=== PATIENT | male | born 1950 | race Caucasian/White ===

== ENCOUNTER 2019-08-07 11:30 | Emergency (ER) | payer MEDICARE, SELFPAY ==
[2019-08-07 11:44] VITALS: BP 170/91; PULSE 98; RESP 16; TEMP 37.2; O2SAT 98
--- NOTE | 2019-08-07 12:05 | ED.EAR ---
HPI - Ear Problem General Chief complaint: Unspecified Stated complaint: trigeminal Time Seen by Provider: 08/07/19 11:54 Source: patient and RN notes reviewed Mode of arrival: ambulatory Limitations: no limitations History of Present Illness HPI Narrative: Patient presents today complaining of trigeminal neuralgia pain to the left ear and neck. States his pain started approximately 2 weeks ago, but has worsened over the last 2 days. He describes the pain as very sharp and piercing inside of his ear. He reports he has severe pain episodes usually 3 times per day, that can last for hours. He has been taking Aleve and using ice on his ear. Currently rates his pain 10/10. History of trigeminal neuralgia many years ago and was on Tegretol. Also states that he has had some pressure buildup in his ear and has tried to equalize without success. MD Complaint: ear pain Related Data Home Medications Medication Instructions Recorded Confirmed metformin 500 mg PO DAILY 01/22/19 08/07/19 glipizide 5 mg PO DAILY 08/07/19 08/07/19 mecobalamin (vitamin B12) [B12 1,000 mcg PO DAILY 08/07/19 08/07/19 Active] Allergies Allergy/AdvReac Type Severity Reaction Status Date / Time No Known Allergies Allergy Verified 08/07/19 11:42 Review of Systems Review of Systems: Narrative: CONSTITUTIONAL: Denies body aches, fever, chills, or sweats. EYES: Denies visual changes, redness, or discharge. ENT: Denies rhinorrhea, congestion, sore throat. +Left ear pain radiating to the left neck CARDIOVASCULAR: Denies chest pain, palpitations, or edema. RESPIRATORY: Denies cough or dyspnea. GASTROINTESTINAL: Denies abdominal pain, nausea, vomiting, or diarrhea. GENITOURINARY: Denies dysuria or hematuria. SKIN: Denies rash, itching, or wounds. MUSCULOSKELETAL: Denies back pain, joint pain, or myalgia. NEUROLOGIC: Denies headache, numbness, tingling, or weakness. PSYCH: Denies depression or anxiety. [facility] Past Medical History Medical History (Updated 08/07/19 @ 12:11 by Alana Muniz, DANIELLA, BC) Diabetes History of trigeminal neuralgia Hypertension Family History Family History Other Cerebrovascular accident Diabetes mellitus Social History Social History Smoking status: Never smoker Second hand tobacco smoke exposure: No Alcohol intake: never Comments At time of signature, I have reviewed and agree with nursing past medical, surgical, social and family history unless otherwise noted. Please see nursing chart for further information. There is no relevant family history pertinent to the presenting complaint Exam Narrative: Exam Narrative: GENERAL: Well-appearing, well-nourished, and in no acute distress. HEAD: Normocephalic, atraumatic. EYES: EOMI. No redness or drainage. Conjunctivae normal. ENT: Mucous membranes pink and moist. Patient has slight movement tenderness of the left external ear.Tenderness extends overlying the left eustachian tube. No swelling of the external ear or neck.Left TM is erythematous and dull. No visualized rupture. Patient has no tenderness to the face. NECK: Normal AROM. Supple. Left anterior cervical chain lymphadenopathy. CHEST: No respiratory distress. EXTREMITIES: Normal range of motion. No edema. SKIN: Warm, dry, no rash. Capillary refill normal. Normal skin turgor. NEURO: No focal deficits. Alert and oriented x3. Gait steady. PSYCH: Normal affect. No signs of depression or anxiety. Course Vital Signs Vital signs: Vital Signs Temperature 98.9 F 08/07/19 11:44 Pulse Rate 98 08/07/19 11:44 Respiratory Rate 16 08/07/19 11:44 Blood Pressure 170/91 H 08/07/19 11:44 Pulse Oximetry 98 08/07/19 11:44 Temperature 98.9 F 08/07/19 11:44 Pulse Rate 98 08/07/19 11:44 Respiratory Rate 16 08/07/19 11:44 Blood Pressure 170/91 H 08/07/19 11:44
== END 2019-08-07 12:12 | disposition home or self-care (01) ==
PROVIDERS: Emergency Provider Nurse Practitioner; PCP Family Medicine
DX: H66.92 Otitis media, unspecified, left ear (principal); H69.82 Other specified disorders of Eustachian tube, left ear; I10 Essential (primary) hypertension; E11.9 Type 2 diabetes mellitus without complications; E78.00 Pure hypercholesterolemia, unspecified; Z87.442 Personal history of urinary calculi; M19.90 Unspecified osteoarthritis, unspecified site; Z79.84 Long term (current) use of oral hypoglycemic drugs
CPT/HCPCS: 99213; G0463

== ENCOUNTER 2019-11-05 10:17 | Emergency (ER) | payer MEDICARE, SELFPAY ==
--- NOTE | 2019-11-05 10:20 | ED.GENADULT ---
HPI - General Adult General Chief complaint: Ear Stated complaint: EARACHE Time Seen by Provider: 11/05/19 10:20 Source: patient Mode of arrival: ambulatory Limitations: no limitations History of Present Illness HPI narrative: 69-year-old male patient presents to the [facility] with complaints of right ear pain. Patient states this is been going on for about a week. Patient states that it was the left ear about a week ago and now is the right ear. Patient states he is tried to get the wax out with some [id number] wax removal without success. Patient states he has had some drainage to the back of the throat along with a little bit of stuffy nose. Denies any fevers, body aches or chills. Denies any coughing, chest pain, shortness of breath. Denies any abdominal pain, nausea, vomiting or diarrhea. Related Data Home Medications Medication Instructions Recorded Confirmed glipizide 5 mg PO DAILY 08/07/19 11/05/19 mecobalamin (vitamin B12) [B12 1,000 mcg PO DAILY 08/07/19 11/05/19 Active] Allergies Allergy/AdvReac Type Severity Reaction Status Date / Time No Known Allergies Allergy Verified 11/05/19 10:30 Review of Systems Review of Systems: Narrative: CONSTITUTIONAL: Denies fever, chills, or sweats. EYES: Denies visual changes, redness, or discharge. ENT: Positive rhinorrhea, congestion, denies sore throat, positive right-sided otalgia. CARDIOVASCULAR: Denies chest pain, palpitations, or edema. RESPIRATORY: Denies cough or dyspnea. GASTROINTESTINAL: Denies abdominal pain, nausea, vomiting, or diarrhea. GENITOURINARY: Denies dysuria or hematuria. SKIN: Denies rash or itching. MUSCULOSKELETAL: Denies back pain, joint pain, or myalgia. NEUROLOGIC: Denies headache, numbness, or weakness. PSYCHIATRIC: Denies anxiety or depression. [facility] Past Medical History Medical History Diabetes History of trigeminal neuralgia Hypertension Family History Family History Other Cerebrovascular accident Diabetes mellitus Social History Social History Smoking status: Never smoker Second hand tobacco smoke exposure: No Alcohol intake: never Comments At the time of my signature I agree with nursing past medical history, surgical, social, and family history. There is no relevant family history pertinent to the presenting complaint. Exam Narrative: Exam Narrative: GENERAL: Well-appearing, well-nourished, and in no acute distress. HEAD: Normocephalic, atraumatic. EYES: PERRLA and EOMI. ENT: Nares clear, no rhinorrhea or epistaxis. Mucous membranes moist. Unable to assess the TMs on bilateral side due to cerumen impaction. Posterior pharynx with no erythema, tonsil enlargement, exudates or lesions present. NECK: Supple. No lymphadenopathy CHEST: Clear to auscultation. No respiratory distress. HEART: Regular rate and rhythm. No murmur heard. Normal peripheral pulses. ABDOMEN: Soft, nontender, nondistended, normal active bowel sounds. EXTREMITIES: Normal range of motion. No edema. SKIN: Warm, dry, no rash. NEURO: No focal deficits. Alert and oriented x3. Course Reevaluation(s) Reevaluation #1: Discussed with patient that the earwax was removed from the left ear however there is a little earwax that remains to the right canal. Discussed with him that his canal is a little irritated and I am also possibly concerned about an inner ear infection as well. Discussed with him that we will go ahead and discharge him home with an antibiotic eardrop along with an oral antibiotic for the ear infection. Discussed with patient that if the pain continues he may need to see an ENT doctor to have the rest of the earwax removed. Patient verbalized understanding denies any other questions or concerns at this time. Date: 11/05/19 Time: 11:14 Vital Signs Vital signs: Vit
[2019-11-05 10:23] VITALS: BP 156/83; PULSE 91; RESP 18; TEMP 36.7; O2SAT 99
== END 2019-11-05 11:18 | disposition home or self-care (01) ==
PROVIDERS: Emergency Provider Nurse Practitioner Family; PCP Family Medicine
DX: H66.91 Otitis media, unspecified, right ear (principal); H61.23 Impacted cerumen, bilateral; H60.501 Unspecified acute noninfective otitis externa, right ear; E11.9 Type 2 diabetes mellitus without complications; I10 Essential (primary) hypertension
CPT/HCPCS: 69210; 99213; G0463

== ENCOUNTER 2019-12-09 06:51 | Outpatient (NON) | payer MEDICARE, SELFPAY ==
[2019-12-09 18:17] LABS: SARS-CoV-2 RNA PCR Negative
== END 2019-12-09 06:52 ==
LOC: ANHCOVIDDT 06:52
PROVIDERS: PCP Family Medicine; Visit Provider Physician Assistant
DX: Z20.828 Contact with and (suspected) exposure to other viral communicable diseases (principal); E78.5 Hyperlipidemia, unspecified
CPT/HCPCS: 87635; C9803; U0003

== ENCOUNTER 2020-01-23 10:20 | Emergency (ER) | payer MEDICARE, SELFPAY ==
[2020-01-23 10:31] VITALS: BP 162/84; PULSE 103; RESP 16; TEMP 37.4; O2SAT 100
--- NOTE | 2020-01-23 10:39 | ED.WOUNDLAC ---
HPI - Wound/Laceration General Chief Complaint: Wound/Laceration Stated Complaint: lt foot laceration Source: patient and RN notes reviewed Limitations: no limitations History of Present Illness HPI narrative: The patient, previously with tetanus UTD, presents with foot laceration. Patient states he sustained a left instep foot laceration while cutting wood with hand axe, about an hour ago. He complains of mild pain and bleeding from superficial laceration that is linear, ~4 cm and located on his arch. No anticoagulant use, foreign body, numbness/weakness and it is approximated. Related Data Home Medications Medication Instructions Recorded Confirmed glipizide 5 mg PO DAILY 08/07/19 12/07/19 vitamin B complex 1 tablet PO DAILY 12/07/19 12/07/19 Allergies Allergy/AdvReac Type Severity Reaction Status Date / Time No Known Allergies Allergy Verified 12/07/19 13:18 Review of Systems Review of Systems: Narrative: General/Constitutional: No weight loss,fever Eyes: N0: Redness,discharge Ears/Nose/Throat: No: Epistaxis,ear discharge Respiratory: Denies: Hemoptysis Gastrointestinal: No Vomiting, Bleeding-rectal Skin: No Lumps, eruption Neurologic: No Focal Weakness,Sz Hematologic: Denies: Petechiae/Purpura Psychiatric: No: Suicida ideationl All Other Systems: Reviewed and Negative [facility] Past Medical History Medical History Calculus of distal left ureter Cholecystitis Diabetes History of trigeminal neuralgia Hypertension Pre-diabetes Surgical History Surgical History History of cholecystectomy (~02/26/09) Family History Family History Other Cerebrovascular accident Diabetes mellitus Social History Social History Smoking status: Never smoker Second hand tobacco smoke exposure: No Alcohol intake: never Substance use: never Substance use type: does not use Additional living arrangements comments: Girlfriend. Gender identity (if verbalized by the patient): Male Spiritual care concerns: No Agree to blood products: Yes Comments At time of signature, agree with nursing past medical, surgical, social and family history. There is no relevant family history pertinent to the presenting complaint Exam Narrative: Exam Narrative: General Appearance: Well appearing, , Conjunctiva clear Ears: External ear normal, Auditory canal normal Nose: Normal nose, Nares clear Mouth/Throat: Normal appearing, Normal lips, Supple Respiratory: Airway patent, No respiratory distress Skin: Warm, Dry, Normal color; 4 cm linear oblique, very superficial, well approximated laceration in the instep MS-foot:Nl strength (mostly intact, limited flexion/extension by pain), Tenderness -medially, with mild decreased ROM, no swelling Other -no anterior drawer, no collateral laxity Neurological: A&O x3, Normal affect Course Vital Signs Vital signs: Vital Signs Temperature 99.4 F 01/23/20 10:31 Pulse Rate 103 H 01/23/20 10:31 Respiratory Rate 16 01/23/20 10:31 Blood Pressure 162/84 H 01/23/20 10:31 Pulse Oximetry 100 01/23/20 10:31 Temperature 99.4 F 01/23/20 10:31 Pulse Rate 103 H 01/23/20 10:31 Respiratory Rate 16 01/23/20 10:31 Blood Pressure 162/84 H 01/23/20 10:31 Pulse Oximetry 100 01/23/20 10:31 Procedures Laceration Laceration 1: Date: 01/23/20 Site: lower extremity Side (If applicable): left Description: linear and clean Depth: simple, single layer Pre-repair: irrigated ====== Skin Level ====== Skin layer closed with: dermabond and steri strips ====== Subcutaneous Layer ====== ====== Muscle Layer ====== ====== Tendon Layer ====== Discharge Plan Disch
== END 2020-01-23 11:20 | disposition home or self-care (01) ==
PROVIDERS: Emergency Provider Emergency Medicine; PCP Family Medicine
DX: S91.312A Laceration without foreign body, left foot, initial encounter (principal); W27.0XXA Contact with workbench tool, initial encounter; E11.9 Type 2 diabetes mellitus without complications; I10 Essential (primary) hypertension
CPT/HCPCS: 12002; 99213; G0463

== ENCOUNTER 2020-03-31 18:49 | Inpatient (IN) | payer MEDICARE, SELFPAY ==
[2020-03-31] VITALS (22 sets, daily range): BP systolic 114–163; BP diastolic 73–94; PULSE 88–107; RESP 16–32; TEMP 36.2; O2SAT 89–96; BMI 36.2
--- NOTE | ~2020-03-31 | XR_ITS ---
EXAMINATION: XR chest 1V portable EXAM DATE: 03/31/2020 19:08 INDICATION: Dyspnea. TECHNIQUE: Portable AP frontal chest x-ray was obtained. Comparison is made to prior examination from 06/22/2018. FINDINGS: There is extensive airspace disease throughout the lungs. Appearances suspicious for COVID pneumonia. Please clinically correlate. There is no pneumothorax suspected. There are no pleural effu sions. The cardiomediastinal silhouette is prominent but magnified on this AP technique. Airspace dis ease is new compared to prior study. There are no osseous abnormalities identified. IMPRESSION: Diffuse airspace disease suspicious for COVID pneumonia. Reviewed, dictated and finalized at location A. [employer]
--- NOTE | ~2020-03-31 | CT_ITS ---
EXAMINATION: CTA chest PE protocol EXAM DATE: 03/31/2020 20:20 INDICATION: Dyspnea. Chest pain. TECHNIQUE: Spiral CTA of the chest (pulmonary arteries) was performed with 100 cc Omnipaque 350 intr avenous contrast injection. Images were acquired during the pulmonary arterial phase. Coronal maxi mum intensity projection 3D-reconstructions were created by the technologist on dedicated workstation . Axial, coronal and sagittal reformatted images were reviewed. The dose-length product (DLP) for t his examination was 863.57 mGy-cm. The exposure was tailored according to patient size (auto mA exp osure control), and iterative reconstruction (ASIR) was used as additional dose reduction technique. Correlation is made to chest x-ray earlier same date. FINDINGS: There are no pulmonary emboli in the 1st through 3rd order (central and interlobar) pulmon matthieu arteries. Some loss of attenuation in the segmental pulmonary arteries due to respiratory motion and suboptimal opacification, but no intraluminal filling defects suspected. No thoracic aortic di ssection. Numerous scattered groundglass opacities with small regions of confluent consolidation, appearance an d distribution is characteristic for COVID pneumonia. Pericardial effusion. No pleural effusion. Tr acheobronchial tree is patent. There is no mediastinal, hilar or axillary lymphadenopathy. There is no pneumothorax. Heart normal in size. There is mild coronary arterial calcification, arterial sclerosis. There are cholecystectomy clips. There is thoracic spondylosis without osteoblastic or osteolytic lesions identified. IMPRESSION: 1. Limited segmental evaluation, but no pulmonary emboli are suspected. 2. Rather extensive acute airspace disease most likely COVID pneumonia. Reviewed, dictated and finalized at location A.
--- NOTE | 2020-03-31 18:55 | ECG_ITS ---
Measurements Intervals Ennice Rate: 104 P: 32 DC: 168 QRS: 2 QRSD: 85 T: 11 QT: 343 QTc: 452 Interpretive Statements SINUS TACHYCARDIA VENTRICULAR PREMATURE COMPLEX DELAYED PRECORDIAL R/S TRANSITION LOW QRS VOLTAGE IN PRECORDIAL LEADS BASELINE ARTIFACT- I, II, III, V4 ABNORMAL ECG Electronically Signed On 03-31-2020 19:04:44 DIE GRINDER by Tashi Guerrero D.O.
[2020-03-31 19:09] LABS: Basophils Percent Auto 0.3 % (0.2-1.2); Eosinophils Absolute Auto 0.1 K/mm3 (0-0.3); Eosinophils Percent Auto 1.9 % (0-4.4); Hemoglobin 14.1 g/dL (14.0-18.0); Immature Granulocyte Absolute 0.07 K/mm3 (0.00-0.031); Immature Granulocyte Percent A 1.2 % (0-0.5); Lymphocytes Absolute Auto 1.12 K/mm3 (0.9-3.2); Lymphocytes Percent Auto 19.4 % (18.3-44.2); Mean Corpuscular HGB Conc 33.6 g/dl (32-36); Mean Corpuscular Hemoglobin 28.3 pg (26-34); Mean Corpuscular Volume 84.2 fl (80-100); Mean Platelet Volume 8.9 fl (7.4-10.4); Monocytes Absolute Auto 0.6 K/mm3 (0.1-0.6); Monocytes Percent Auto 10.4 % (2.6-8.5); Neutrophils Absolute Auto 3.9 K/mm3 (1.3-6.7); Neutrophils Percent Auto 66.8 % (45.5-73.1); Platelet Count Result 364 k/mm3 (150-375); Red Blood Count 4.99 M/mm3 (4.6-6.20); Red Cell Distribution Width 13.8 % (11.5-14.5); White Blood Count 5.8 K/mm3 (4.5-10.0)
[2020-03-31] MEDS: ASPIRIN 81 MG CHEWABLE TABLET 324 MG PO (19:16)
--- NOTE | 2020-03-31 19:16 | PC.NURSE ---
CXR done at bedside. per Dr. Pruitt looks like covid pneumonia. patient placed on isolation.
--- NOTE | 2020-03-31 19:19 | ED.GENADULT ---
HPI - General Adult General Chief complaint: Shortness of Breath/Dyspnea Stated complaint: cp/diff breathing Source: RN notes reviewed History of Present Illness HPI narrative: Patient presents to emergency department via EMS for shortness of breath. Patient states he has been having progressive shortness of breath over the past 6 weeks. He states is been associated with a cough this been nonproductive states that he normally has a yearly case of bronchitis and this feels similar he went to his PCP yesterday and was prescribed Augmentin with minimal relief he denies any fevers or chills abdominal pain nausea vomiting he did note some upper chest pain earlier this shortness of breath that is now improved Related Data Home Medications Medication Instructions Recorded Confirmed glipizide 5 mg PO DAILY 08/07/19 03/30/20 vitamin B complex 1 tablet PO DAILY 12/07/19 03/30/20 Allergies Allergy/AdvReac Type Severity Reaction Status Date / Time No Known Allergies Allergy Verified 03/31/20 19:10 Review of Systems Review of Systems: Narrative: Gen.: Denies fevers or chills ENT: Denies congestion Respiratory: See HPI CV: Reports chest pain is now resolved GI: Denies abdominal pain nausea, emesis or diarrhea Musculoskeletal: Denies back pain or muscle pain Neuro: Denies numbness, tingling, weakness or focal weakness Skin: Denies rash Except as documented, all other systems reviewed and negative [facility] Past Medical History Medical History Calculus of distal left ureter Cholecystitis Diabetes History of trigeminal neuralgia Hypertension Pre-diabetes Surgical History Surgical History History of cholecystectomy (~02/26/09) Family History Family History Other Cerebrovascular accident Diabetes mellitus Social History Social History Smoking status: Never smoker Second hand tobacco smoke exposure: No Alcohol intake: never Substance use: never Substance use type: does not use Additional living arrangements comments: Girlfriend. Gender identity (if verbalized by the patient): Male Spiritual care concerns: No Agree to blood products: Yes Exam Narrative: Exam Narrative: APPEARANCE: Mild respiratory distress nontoxic, resting in bed EYES: EOMI HEENT: Normocephalic, atraumatic, OMM RESPIRATORY: No respiratory distress, distress crackles throughout the bilateral lung diego CARDIOVASCULAR: Regular rate and rhythm without murmurs rubs or gallops. ABDOMINAL: Soft, nontender, nondistended, no rebound or guarding MUSCULOSKELETAl: Moves all extremities. No clubbing, cyanosis or edema. NEURO: Awake and alert. Following commands, speech normal, no focal deficits SKIN:: Warm, dry. No rashes lesions or abrasions PSYCHIATRIC: Normal affect/mood, Course Course Emergency Course: Called and discussed with Dr. Wright presentation work-up agrees with admission at this time agrees with plan for antibiotics until Covid test is returned Discussed with patient and family results of workup and diagnosis. Discussed need for admission. Patient and family understand and agree to current treatment plan Vital Signs Vital signs: Vital Signs Pulse Rate 100 03/31/20 18:53 Respiratory Rate 27 H 03/31/20 18:53 Pulse Oximetry 90 03/31/20 18:53 Pulse Rate 92 03/31/20 19:46 Respiratory Rate 25 H 03/31/20 19:46 Blood Pressure 143/85 H 03/31/20 19:46 Pulse Oximetry 95 03/31/20 19:46 Medical Decision Making Vital Signs Vital Signs: Vital Signs Pulse Rate 100 03/31/20 18:53 Respiratory Rate 27 H 03/31/20 18:53 Pulse Oximetry 90 03/31/20 18:53 Pulse Rate 92 03/31/20 19:46 Respiratory Rate 25 H 03/31/20 19:46 Blood Pressure 143/85 H 03/31/20 19:46 Pulse Ox
[2020-03-31 19:26] LABS: Anion Gap 15 mmol/L (8-16); Blood Urea Nitrogen 22 mg/dL (9-20); Calcium 8.3 mg/dL (8.4-10.2); Carbon Dioxide 21 mmol/L (22-30); Chloride 101 mmol/L (98-107); Estimated Glomerular Filt Rate > 60; Glucose 144 mg/dL (75-110); Potassium 4.1 mmol/L (3.4-5.0); Sodium 137 mmol/L (137-145)
[2020-03-31 19:33] LABS: INR 1.1; Prothrombin Time 14.3 Seconds (11.1-14.7)
[2020-03-31 19:34] LABS: Partial Thromboplastin Time 32.5 SECONDS (22.3-36.8)
[2020-03-31 19:49] LABS: Lactic Acid Reflex 1.5 mmol/L (0.7-2.1)
--- NOTE | 2020-03-31 19:52 | PC.NURSE ---
patient to CT via stretcher.
[2020-03-31 20:10] LABS: Troponin I 0.151 ng/mL (0.000-0.034)
[2020-03-31 20:12] LABS: D Dimer 1.11 ug/mL (<0.48)
[2020-03-31 20:20] LABS: NT Pro B Type Natriuretic Pept 244 PG/ML (5-100)
--- NOTE | 2020-03-31 20:38 | PC.NURSE ---
patient back from CT. med given as ordered. has ice water at bedside. on cardiac cath technician. has call light in reach. aware of planned admission. denies needs.
--- NOTE | 2020-03-31 20:59 | PC.NURSE ---
provider in room. all test results and treatment plan reviewed with patient.
[2020-03-31] MEDS: SODIUM CHLORIDE 0.9% IV 500 ML 100 ML (22:28)
--- NOTE | 2020-03-31 23:06 | PM.IMHP ---
H&P: HPI History of Present Illness Date/Time: 03/31/20 21:30 Chief Complaint: Shortness of breath, chest pain Narrative: Canelo Cotton is a 69 year old male with a past medical history of type 2 diabetes, hypertension hyperlipidemia and obesity who presented to the ER due to worsening dyspnea on exertion. The patient reports that for the last 6 weeks he has been having rhinorrhea, cough and shortness of breath. He reports that his temperatures have been measuring as normal but he has been having diaphoresis and hot flashes. He is and denies any loss of sense of taste or smell. His sister tested positive for COVID a little over 2 weeks ago. He had had contact with his sister just prior to her COVID diagnosis. He reports that his cough is mostly nonproductive. He reports that he coughs incessantly. He has had loss of appetite and generalized fatigue. He denies significant body aches. He reports that he went to his primary care physician's office yesterday and was diagnosed with bronchitis. He reports that he gets bronchitis each year. He denies any history of lung disease, smoking or asthma. He was given prescription for Augmentin, benzoate, and Claritin-D. His oxygen saturations at his doctor's appointment were 86%. They wanted him to come to the ER for evaluation at that time and he refused. He stated that he needed to take care of his significant other who has a history of seizures. However his dyspnea on exertion became progressively worsened over the last 24 hours. Earlier today he developed left-sided chest pain that felt like a knot sitting in the left sternal region. The pain was 5/10 in intensity. The pain did not radiate. The pain was relieved once he was placed on supplemental oxygen. He denies any orthopnea. He does have episodes of apnea when he sleeps on his back but denies any apnea when he sleeps on his sides. He states that he feels well rested when he wakes up. He denies any lower extremity swelling, paroxysmal nocturnal dyspnea or palpitations. Review of Systems Review of Systems: Narrative: 12 systems were reviewed with pertinent positives and negatives per HPI. Except as documented in the HPI, all other systems were reviewed and are negative. [facility] Past Medical History Medical History (Updated 03/31/20 @ 23:28 by Shireen Wright DO) Calculus of distal left ureter With history of lithotripsy March 2010 Diabetes History of trigeminal neuralgia Hypertension Obesity Surgical History Surgical History (Updated 03/31/20 @ 23:28 by Shireen Wright DO) History of appendectomy History of cholecystectomy (~02/26/09) Status post bilateral cataract extraction Family History Family History Father , At 51 years old Diabetes mellitus Cerebrovascular accident Mother Over 80 years old Social History Social History (Updated 04/01/20 @ 02:12 by Shireen Wright DO) Social History: The patient lives in [place] with his girlfriend of 8 years. 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 He has 1 adult child. He is a lifelong nonsmoker. He rarely drinks alcohol and only in moderation. He states a 6 pack lasts him about a year. He denies illicit substance use. He is independent in activities of daily living. He has a total of 5 siblings. His 1 brother of a gunshot wound in the 1950s. He has a half sister who of complications of smoking and alcohol use in her 80s. His other siblings are still living and a relatively healthy. Primary care physician: Dr. Sherley Luna Surrogate decision maker: Griselda Russell (sister) Code status: DNR per patient request Smoking status: Never smoker Second hand tobacco smoke exposure: No Alcohol intake: never Substance use: never Substance use type: does not use Additional living arrangements comments: Girlfriend. Gender identity (if verbal
--- NOTE | 2020-03-31 23:45 | ADMGEN ---
This patient, Canelo Cotton, was admitted to IMU Room 210-01 at 2322 from the Emergency Department. Patient/family oriented to hospital policies and general routines including ID bracelet, bed and alarms, visiting hours, pain management, procedures, bathroom and other care routines, personal items, smoking policy, room service/diet, and visiting hours. Information on how to activate the Rapid Response Team has been discussed. Patient/Family are encouraged to report perceived risks to care and to ask questions if they do not understand what they are told or what they should do.
--- NOTE | 2020-03-31 23:46 | ADMGEN ---
This patient, Canelo Cotton, was admitted to IMU Room 210-01 at 2300 from the Emergency Department. Patient/family oriented to hospital policies and general routines including ID bracelet, bed and alarms, visiting hours, pain management, procedures, bathroom and other care routines, personal items, smoking policy, room service/diet, and visiting hours. Information on how to activate the Rapid Response Team has been discussed. Patient/Family are encouraged to report perceived risks to care and to ask questions if they do not understand what they are told or what they should do.
[2020-04-01] VITALS (14 sets, daily range): BP systolic 103–175; BP diastolic 46–76; PULSE 74–102; RESP 12–18; TEMP 36.1–36.4; O2SAT 88–96
[2020-04-01] MEDS: ENOXAPARIN 40 MG/0.4 ML SYRINGE SUB-Q ×2 (00:15→21:23)
[2020-04-01] MEDS: ALBUTEROL SULFATE (*SP) AEROSOL 1 PUFF 6 PUFF INHALATION ×2 (01:53→23:00)
[2020-04-01 05:39] LABS: Basophils Percent Auto 0.5 % (0.2-1.2); Hematocrit 39.8 % (42.0-52.0); Hemoglobin 13.3 g/dL (14.0-18.0); Immature Granulocyte Absolute 0.07 K/mm3 (0.00-0.031); Immature Granulocyte Percent A 1.9 % (0-0.5); Lymphocytes Absolute Auto 0.93 K/mm3 (0.9-3.2); Lymphocytes Percent Auto 24.6 % (18.3-44.2); Mean Corpuscular HGB Conc 33.4 g/dl (32-36); Mean Corpuscular Hemoglobin 28.1 pg (26-34); Mean Platelet Volume 9.2 fl (7.4-10.4); Monocytes Absolute Auto 0.1 K/mm3 (0.1-0.6); Monocytes Percent Auto 3.2 % (2.6-8.5); Neutrophils Absolute Auto 2.6 K/mm3 (1.3-6.7); Neutrophils Percent Auto 69.8 % (45.5-73.1); Platelet Count Result 373 k/mm3 (150-375); Red Blood Count 4.74 M/mm3 (4.6-6.20); Red Cell Distribution Width 13.5 % (11.5-14.5); White Blood Count 3.8 K/mm3 (4.5-10.0)
[2020-04-01 05:48] LABS: Alanine Aminotransferase 56 U/L (4-50); Albumin Level 3.3 g/dL (3.5-5.1); Alkaline Phosphatase 72 U/L (38-126); Anion Gap 7 mmol/L (8-16); Aspartate Amino Transferase 107 U/L (17-59); Bilirubin,Total 0.8 mg/dL (0.2-1.3); Blood Urea Nitrogen 23 mg/dL (9-20); Calcium 8.2 mg/dL (8.4-10.2); Carbon Dioxide 20 mmol/L (22-30); Chloride 109 mmol/L (98-107); Estimated CRCL calculation 98 ml/min; Estimated Glomerular Filt Rate > 60; Glucose 188 mg/dL (75-110); Lactate Dehydrogenase 973 U/L (313-618); Potassium 4.7 mmol/L (3.4-5.0); Sodium 136 mmol/L (137-145)
[2020-04-01 08:41] LABS: Glucose Point of Care 177 (65-105)
[2020-04-01 12:58] LABS: Glucose Point of Care 176 (65-105)
[2020-04-01 14:07] LABS: SARS-CoV-2 RNA PCR Positive
--- NOTE | 2020-04-01 14:31 | PM.CNCAR ---
Assessment and Plan Additional Plan 69-year-old man with elevated troponin levels that are part of his sanon virus infection. Obviously there is some evidence now of myocardial inflammation. I do not believe Mr. nora mendiola is having an acute myocardial infarction there is no clinical or electrocardiographic evidence of that. I would consider systemic anticoagulation to be potentially of some benefit in this setting other than this I right now do not have any specific cardiac recommendations to make. In this setting patients do not benefit from coronary angiography in general. Peter Keita MD [facility] History of Present Illness History of Present Illness Consult date/time: 04/01/20 14:31 Reason For Visit: Acute respiratory failure w/hypoxia Narrative: This is a 69-year-old man that whom I am seeing at the request of the hospitalist because of elevation of serum troponin levels. Patient has a history of hypertension and type 2 diabetes and has been admitted to the hospital because of symptoms of shortness of breath and coughing that began about a week to 2 weeks before admission. The patient was exposed to his sister who has sanon virus about a week before becoming ill and she then tested positive for COVID-19. The patient was saw his PCP in the office on the and was feeling badly was told to come into the emergency room which he did not he then felt more short of breath and had the sense of some chest pain as well which lasted for a couple of hours or so and then subsided without any complication. In the emergency department he was mildly hypoxemic his chest x-ray looks like diffuse pneumonitis typical of sanon virus. His sanon virus assay has come back positive. The electrocardiogram does not show any evidence of acute myocardial injury. He is currently asymptomatic other than concern but about his diagnosis. Troponin levels are significantly elevated but flat. Review of Systems Constitutional: Constitutional: Reports fatigue Eyes: Eyes: Reports no additional eye complaints ENT: Reports system reviewed and no additional complaints, except as documented Cardiovascular: Cardiovascular: Reports as per HPI Respiratory: Respiratory: Reports cough and Reports dyspnea Gastrointestinal: Gastrointestinal: Reports no additional gastrointestinal complaints Musculoskeletal: Musculoskeletal: Reports no additional musculoskeletal complaints Integumentary/Breasts: Skin/Breast: Reports system reviewed and no additional complaints, except as docu Neurologic: Reports system reviewed and no additional complaints, except as documented Endocrine: Endocrine: Reports no additional endocrine complaints Hematologic/Lymphatic: Hematologic/Lymphatic: Reports no additional hematologic/lymphatic complaints Allergic/Immunologic: Allergic/Immunologic: Reports no additional allergic/immunologic complaints [facility] Past Medical History Medical History (Updated 03/31/20 @ 23:28 by Shireen Wright DO) Calculus of distal left ureter With history of lithotripsy March 2010 Diabetes History of trigeminal neuralgia Hypertension Obesity Surgical History Surgical History (Updated 03/31/20 @ 23:28 by Shireen Wright DO) History of appendectomy History of cholecystectomy (~02/26/09) Status post bilateral cataract extraction Family History Family History Father , At 51 years old Diabetes mellitus Cerebrovascular accident Mother Over 80 years old Social History Social History (Updated 04/01/20 @ 02:12 by Shireen Wright DO) Social History: The patient lives in [place] with his girlfriend of 8 years. 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 He has 1 adult child. He is a lifelong nonsmoker. He rarely drinks alcohol and only in moderation. He states a 6 pack lasts him about a year. He denies illicit substance use. He is independent in
--- NOTE | 2020-04-01 15:24 | PM.IMPN ---
Progress Note: A&P Assessment and Plan (1) Suspected COVID-19 virus infection: Code(s): Z20.822 - Contact with and (suspected) exposure to COVID-19 Status: Acute Assessment and Plan: Pneumonia likely secondary to COVID-19 given patient's significant imaging findings. The patient is was started on dexamethasone in the ER. Will continue dexamethasone assuming patient's COVID testing comes back positive. 04/01/20 15:24 Patient is 69-year-old male with a past medical history of diabetes hypertension morbidly obese presented emergency department with a complaint cough shortness of breath over 6 week patient thought he was having upper respiratory infection was seen by his primary care physician was diagnosed with bronchitis yesterday and started the patient on Augmentin and inhaler however his symptoms were not improving patient presented emergency department further evaluation today patient is positive COVID 19, currently patient is requiring 4 L of oxygen and does not have any fever, patient was already started on dexamethasone 2/10 from ER will start the patient on Remdesivir 02/15, convalescent plasma, vitamin D and C also zinc, patient is anticoagulated with lovenox 40mg BID, patient patient has elevated tropes seen by Cardiology does not suspect acute coronary syndrome and patient does not have a significant complaint of chest, an EKG did not show any acute injury will continue Lovenox, and does not recommend any further evaluation at the present time. Will continue to monitor the patient will have a PT OT evaluate the patient and further recommendation to follow (2) Elevated troponin: Code(s): R77.8 - Other specified abnormalities of plasma proteins Status: Acute Assessment and Plan: Initially thought the patient's troponin elevation was due to hypoxia. The patient had been hypoxic with oxygen levels down to 86% as outpatient yesterday. However patient's troponin elevation with quite significant. Patient does have multiple risk factors for coronary artery disease including hypertension diabetes and dyslipidemia. He has also suspected to have COVID-19 which puts him at increased risk for cardiac event. The patient's chest pain resolved after placing on oxygen therapy. Will check an echocardiogram and consult Cardiology. (3) Acute respiratory failure with hypoxia: Code(s): J96.01 - Acute respiratory failure with hypoxia Status: Acute Assessment and Plan: Likely secondary to COVID-19 pneumonia. Patient has been placed on empiric antibiotic therapy with Rocephin and azithromycin rule out possible bacterial component given duration of his symptoms equaling 6 weeks. Will continue steroid therapy if COVID testing comes back positive. The patient is on droplet/contact and airborne isolation. Will add albuterol inhalers. Will check inflammatory markers with a.m. labs. (4) Type 2 diabetes mellitus without complication, without long-term current use of insulin: Code(s): E11.9 - Type 2 diabetes mellitus without complications Status: Acute Assessment and Plan: Will continue patient's home oral hypoglycemic agents. Patient has been placed on Accu-Cheks a.c. HS, sliding scale insulin and hypoglycemia protocol. Subjective Date/time seen: 04/01/20 15:24 Patient is 69-year-old male with a past medical history of diabetes hypertension morbidly obese presented emergency department with a complaint cough shortness of breath over 6 week patient thought he was having upper respiratory infection was seen by his primary care physician was diagnosed with bronchitis yesterday and started the patient on Augmentin and inhaler however his symptoms were not improving patient presented emergency department further evaluation today patient is positive COVID 19, currently patient is requiring 4 L of oxygen and does not have any fever, patient was already started on dexamethasone 03/23 from ER will
[2020-04-01] MEDS: CHOLECALCIFEROL 1,000 UNITS TABLET 1000 UNITS PO (16:13)
[2020-04-01] MEDS: ZINC SULFATE 220 MG CAPSULE PO (16:13)
[2020-04-01] MEDS: ASCORBIC ACID 500 MG TABLET PO (16:13)
[2020-04-01 16:56] LABS: Glucose Point of Care 268 (65-105)
[2020-04-01] MEDS: INSULIN ASPART (*BKC) 100 UNITS/ML SUB-Q (17:28)
[2020-04-01] MEDS: REMDESIVIR 200 MG/NS 250 ML 200 MG/250 ML BAG 250 MG IVPB (17:29)
[2020-04-01 21:12] LABS: Glucose Point of Care 180 (65-105)
[2020-04-02] VITALS (16 sets, daily range): BP systolic 109–145; BP diastolic 46–69; PULSE 65–114; RESP 16–20; TEMP 36–37.1; O2SAT 91–97
--- NOTE | 2020-04-02 | ECHO_ITS ---
Patient Info Name: Canelo Cotton Age: 69 years : 1950 Gender: Male Ht: 75 in Wt: 286 lbs BSA: 2.66 m2 HR: 77 bpm BP: 129 / 54 mmHg Heart Rhythm: Sinus Rhythm Technical Quality: Fair Exam Date: 04/02/2020 8:16 AM Exam Location: [facility] Patient Status: Inpatient Admit Date: 03/31/2020 Staff Ordering Physician: Shireen Wright DO General Partner: Camila Flores RDCS Attending Provider: Shireen Wright DO Referring Physician: Adriana KASPER; Exam Type: CA echo dop color flow w con Study Info contrast used. Contrast/Agitated Saline Contrast/Ag. Saline: Definity Amount: 4.00 ml Summary 1. Normal left ventricular size with mild concentric hypertrophy. Good left ventricular systolic function, EF 65-70%, with no focal wall motion abnormalities. Grade 2 diastolic dysfunction is present. 2. Left atrial chamber dimension is mildly enlarged. 3. No pulmonary hypertension. 4. Normal sinus rhythm. 5. No significant valve disease. 6. Somewhat technically difficult study; IV echo definity contrast used. Left Ventricle Left ventricular chamber dimension is normal. Left ventricular systolic function is normal, estimated at 65-70%. There is mildly increased left ventricular wall thickness. Left ventricular septal wall motion is normal. The left ventricular diastolic function is grade II diastolic dysfunction. Right Ventricle Right ventricular chamber dimension is normal. Right ventricular systolic function is normal. Left Atria Left atrial chamber dimension is mildly enlarged. Right Atria Right atrial chamber dimension is normal. Aortic Valve The aortic valve is trileaflet. There is no aortic valve sclerosis. There is no aortic valve stenosis. There is no aortic valve regurgitation. Pulmonic Valve The pulmonic valve is normal. There is no pulmonic valve stenosis. There is no pulmonic regurgitation. Mitral Valve The mitral valve has normal leaflets. There is no mitral valve stenosis. There is no mitral valve regurgitation. Tricuspid Valve The tricuspid valve leaflets are normal. There is no significant tricuspid valve stenosis. There is trace tricuspid valve regurgitation. No pulmonary hypertension. Pericardium/Pleural The pericardium appears normal. There is no pericardial effusion. Inferior Vena Cava Not well visualized inferior vena cava with >50% collapse upon inspiration consistent with Empty right atrial pressure, Empty. Aorta The aortic root size at the sinus of Valsalva is normal. The prox ascending aorta size is not well visualized. The aorta arch size is not well visualized measuring Empty. The abdominal aorta size is not well visualized. Left Ventricular Outflow Tract Name Value Normal LVOT 2D LVOT Diameter 2.31 cm LVOT Doppler LVOT Peak Gradient 3 mmHg LVOT Mean Gradient 1 mmHg LVOT VTI 22.89 cm LVOT VTI/AV VTI Ratio 0.75 LVOT Stroke Volume 96.14 ml
[2020-04-02 05:35] LABS: Basophils Percent Auto 0.2 % (0.2-1.2); Hematocrit 36.3 % (42.0-52.0); Hemoglobin 11.8 g/dL (14.0-18.0); Immature Granulocyte Absolute 0.21 K/mm3 (0.00-0.031); Immature Granulocyte Percent A 2.5 % (0-0.5); Lymphocytes Absolute Auto 1.38 K/mm3 (0.9-3.2); Lymphocytes Percent Auto 16.3 % (18.3-44.2); Mean Corpuscular HGB Conc 32.5 g/dl (32-36); Mean Corpuscular Hemoglobin 27.4 pg (26-34); Mean Corpuscular Volume 84.2 fl (80-100); Monocytes Absolute Auto 0.7 K/mm3 (0.1-0.6); Monocytes Percent Auto 8.2 % (2.6-8.5); Neutrophils Absolute Auto 6.2 K/mm3 (1.3-6.7); Neutrophils Percent Auto 72.8 % (45.5-73.1); Red Blood Count 4.31 M/mm3 (4.6-6.20); Red Cell Distribution Width 13.5 % (11.5-14.5); White Blood Count 8.5 K/mm3 (4.5-10.0)
[2020-04-02 05:57] LABS: Alanine Aminotransferase 73 U/L (4-50); Albumin Level 3.2 g/dL (3.5-5.1); Alkaline Phosphatase 70 U/L (38-126); Anion Gap 8 mmol/L (8-16); Aspartate Amino Transferase 113 U/L (17-59); Bilirubin,Total 0.5 mg/dL (0.2-1.3); Blood Urea Nitrogen 30 mg/dL (9-20); CRP 4.1 mg/dL (<1.0); Calcium 8.2 mg/dL (8.4-10.2); Carbon Dioxide 21 mmol/L (22-30); Chloride 110 mmol/L (98-107); Estimated CRCL calculation 82 ml/min; Estimated Glomerular Filt Rate > 60; Glucose 168 mg/dL (75-110); Potassium 4.1 mmol/L (3.4-5.0); Sodium 139 mmol/L (137-145)
[2020-04-02 08:20] LABS: Glucose Point of Care 190 (65-105)
[2020-04-02] MEDS: ZINC SULFATE 220 MG CAPSULE PO (09:07)
[2020-04-02] MEDS: ASCORBIC ACID 500 MG TABLET PO (09:07)
[2020-04-02] MEDS: ENOXAPARIN 40 MG/0.4 ML SYRINGE SUB-Q ×2 (09:07→20:59)
[2020-04-02] MEDS: CHOLECALCIFEROL 1,000 UNITS TABLET 1000 UNITS PO (09:07)
[2020-04-02] MEDS: FLUTICASONE PROPIONATE 0.05% NA SPR 16 GM BTL (*BKC) 2 SPRAY NASAL (09:08)
[2020-04-02] MEDS: ALBUTEROL SULFATE (*SP) AEROSOL 1 PUFF 6 PUFF INHALATION ×3 (09:37→20:58)
[2020-04-02 09:43] LABS: Large Platelets Present; Platelet Clumps Present; Platelet Estimate Increased (Adequate)
[2020-04-02] MEDS: REMDESIVIR 100 MG/NS 250 ML 100 MG/250 ML BAG 250 MG IVPB (10:03)
[2020-04-02] MEDS: amLODIPine BESYLATE 5 MG TABLET 10 MG PO (12:01)
[2020-04-02] MEDS: metFORMIN HCL XR 500 MG TAB.SR.24H 1000 MG PO (12:02)
[2020-04-02] MEDS: VITAMIN B COMPLEX CAPSULE 1 CAP PO (12:02)
[2020-04-02] MEDS: glipiZIDE XL 5 MG TABCR PO (12:02)
[2020-04-02] MEDS: TUBING, BLOOD PLUM PUMP TUBING 1 EACH XX (12:03)
[2020-04-02] MEDS: SODIUM CHLORIDE 0.9% IV 250 ML 30 ML IV CONT (12:03)
[2020-04-02] MEDS: PRAVASTATIN SODIUM 10 MG TABLET PO (12:03)
[2020-04-02 12:51] LABS: Glucose Point of Care 186 (65-105)
[2020-04-02] MEDS: DEXAMETHASONE 2 MG TABLET 6 MG PO (14:24)
--- NOTE | 2020-04-02 15:35 | PM.IMPN ---
Progress Note: A&P Assessment and Plan (1) Suspected COVID-19 virus infection: Code(s): Z20.822 - Contact with and (suspected) exposure to COVID-19 Status: Acute Assessment and Plan: Pneumonia likely secondary to COVID-19 given patient's significant imaging findings. The patient is was started on dexamethasone in the ER. Will continue dexamethasone assuming patient's COVID testing comes back positive. 04/02/20 15:35 Patient is 69-year-old male with a past medical history of diabetes hypertension morbidly obese presented emergency department with a complaint cough shortness of breath over 6 week patient thought he was having upper respiratory infection was seen by his primary care physician was diagnosed with bronchitis yesterday and started the patient on Augmentin and inhaler however his symptoms were not improving patient presented emergency department further evaluation today patient is positive COVID 19, currently patient is requiring 4 L of oxygen and does not have any fever, patient was already started on dexamethasone 03/23 from ER will start the patient on Remdesivir 02/15, convalescent plasma, vitamin D and C also zinc, patient is anticoagulated with lovenox 40mg BID, patient patient has elevated tropes seen by Cardiology does not suspect acute coronary syndrome and patient does not have a significant complaint of chest, an EKG did not show any acute injury will continue Lovenox, and does not recommend any further evaluation at the present time. Will continue to monitor the patient will have a PT OT evaluate the patient and further recommendation to follow 04/02 today patient was positive COVID 19 04/01 , currently patient is requiring 4 L of oxygen and does not have any fever, patient was was not started on dexamethasone from ER will start today dexamethasone 02/20, started the patient on 04/01 Remdesivir 03/18, received convalescent plasma, vitamin D and C also zinc, patient is anticoagulated with lovenox 40mg BID, patient remains clinically stable, requested prone ventilation, will have a PT OT evaluate the patient. (2) Elevated troponin: Code(s): R77.8 - Other specified abnormalities of plasma proteins Status: Acute Assessment and Plan: Initially thought the patient's troponin elevation was due to hypoxia. The patient had been hypoxic with oxygen levels down to 86% as outpatient yesterday. However patient's troponin elevation with quite significant. Patient does have multiple risk factors for coronary artery disease including hypertension diabetes and dyslipidemia. He has also suspected to have COVID-19 which puts him at increased risk for cardiac event. The patient's chest pain resolved after placing on oxygen therapy. Will check an echocardiogram and consult Cardiology. (3) Acute respiratory failure with hypoxia: Code(s): J96.01 - Acute respiratory failure with hypoxia Status: Acute Assessment and Plan: Likely secondary to COVID-19 pneumonia. Patient has been placed on empiric antibiotic therapy with Rocephin and azithromycin rule out possible bacterial component given duration of his symptoms equaling 6 weeks. Will continue steroid therapy if COVID testing comes back positive. The patient is on droplet/contact and airborne isolation. Will add albuterol inhalers. Will check inflammatory markers with a.m. labs. (4) Type 2 diabetes mellitus without complication, without long-term current use of insulin: Code(s): E11.9 - Type 2 diabetes mellitus without complications Status: Acute Assessment and Plan: Will continue patient's home oral hypoglycemic agents. Patient has been placed on Accu-Cheks a.c. HS, sliding scale insulin and hypoglycemia protocol. Subjective Date/time seen: 04/02/20 15:35 Patient is 69-year-old male with a past medical history of diabetes hypertension morbidly obese presented emergency department with a complaint cough shortness of breath over
--- NOTE | 2020-04-02 17:18 | PM.PNCARD ---
Progress Note: A&P Assessment and Plan (1) Pneumonia due to COVID-19 virus: Code(s): U07.1 - COVID-19; J12.82 - Pneumonia due to coronavirus disease 2019 Status: Acute Assessment and Plan: Treatment per hospitalists. Still requiring 4 L of O2. Sign tachycardia may be a sign of decompensation. (2) Acute respiratory failure with hypoxia: Code(s): J96.01 - Acute respiratory failure with hypoxia Status: Acute Assessment and Plan: As above (3) Elevated troponin: Code(s): R77.8 - Other specified abnormalities of plasma proteins Status: Acute Assessment and Plan: Significantly elevated troponin with no chest pain, normal EKG, and good LV function by echocardiogram. 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 Stable, with no CHF. Recommend outpatient follow-up, probably repeat echo and possibly evaluate for underlying CAD with a stress test in several weeks. (4) Primary hypertension: Code(s): I10 - Essential (primary) hypertension Status: Acute Assessment and Plan: Blood pressure stable. Additional Plan Will follow patient a distance. Please call if we can be of further help. Recommend outpatient cardiology follow-up with an echo and a Lexiscan in several weeks. Thank you for asking us to participate in this patient's care. Subjective Date/time seen: 04/02/20 17:18 Interval history: Follow-up for patient with sanon virus pneumonia and elevated troponins up to 4.8. Date of service 04/02/2020: Feels pretty good, no shortness of breath at rest but ambulating to the bathroom causes JAIN. No chest pain or pressure. Remains on 4 L of oxygen. Hemodynamically stable although a little tachycardic at times in sinus tachycardia rate 100-110 beats per minute. Echo showed EF 65-70%, no valve disease. EKG on admission showed no acute ischemic changes. Review of Systems Constitutional: Constitutional: Reports fatigue Eyes: Eyes: Reports no additional eye complaints ENT: Denies epistaxis Cardiovascular: Cardiovascular: Denies chest pain, Denies pedal edema, Denies leg edema and Reports palpitations (Increased heart rate and palpitations with activity) Respiratory: Respiratory: Reports cough, Reports dyspnea on exertion and Denies wheezing Gastrointestinal: Gastrointestinal: Denies abdominal pain Genitourinary: Genitourinary: Denies dysuria Musculoskeletal: Musculoskeletal: Denies back pain and Denies neck pain Integumentary/Breasts: Skin/Breast: Denies rash Neurologic: Denies confusion Psychiatric: Psychiatric: Denies behavioral changes Exam Narrative: Exam Narrative: Older male sitting up at the bedside, occasional cough, no distress Const: General: comfortable HENMT: General nose exam: no epistaxis Mouth: Yes moist mucous membranes Eyes: EOM: EOMs intact bilaterally Neck: Neck: supple and no JVD Resp: Auscultation: rales (Rales in left lower lobe) Cardio: Rate: regular rate Heart sounds: no murmurs GI: GI Palp: Yes Soft to palpation Neuro: Cognition (Neuro): normal cognition Speech: normal speech Motor exam (neuro): Normal motor muscle tone present throughout Extrem: General: edema (Mild pretibial edema bilaterally) Psych: Mental Status: mental status grossly normal Affect: normal affect Objective Data Vital Signs Vital Signs: Vital Signs - 24 hr 04/01/20 18:00 04/01/20 20:00 04/01/20 22:00 Temperature 97.4 F L Pulse Rate 99 94 85 Respiratory Rate 16 Blood Pressure 175/75 H Pulse Oximetry 90 04/02/20 00:00 04/02/20 02:00 04/02/20 04:00 Temperature 97.3 F L 97.3 F L Pulse Rate 89 71 70 Respiratory Rate 20 20 Blood Pressure 13
[2020-04-02 17:24] LABS: Glucose Point of Care 254 (65-105)
[2020-04-02] MEDS: INSULIN ASPART (*BKC) 100 UNITS/ML SUB-Q (17:38)
[2020-04-02 20:36] LABS: Glucose Point of Care 260 (65-105)
[2020-04-03] VITALS (9 sets, daily range): BP systolic 114–146; BP diastolic 49–66; PULSE 67–99; RESP 20; TEMP 36–36.9; O2SAT 91–97
[2020-04-03 05:12] LABS: Basophils Percent Auto 0.3 % (0.2-1.2); Hematocrit 33.9 % (42.0-52.0); Hemoglobin 11.2 g/dL (14.0-18.0); Immature Granulocyte Absolute 0.29 K/mm3 (0.00-0.031); Immature Granulocyte Percent A 3.9 % (0-0.5); Lymphocytes Absolute Auto 0.95 K/mm3 (0.9-3.2); Lymphocytes Percent Auto 12.8 % (18.3-44.2); Mean Corpuscular Hemoglobin 28.1 pg (26-34); Mean Platelet Volume 9.2 fl (7.4-10.4); Monocytes Absolute Auto 0.6 K/mm3 (0.1-0.6); Monocytes Percent Auto 8.2 % (2.6-8.5); Neutrophils Absolute Auto 5.6 K/mm3 (1.3-6.7); Neutrophils Percent Auto 74.8 % (45.5-73.1); Nucleated Red Blood Cells Perc 0.3 % (0.0-0.2); Platelet Count Result 461 k/mm3 (150-375); Red Blood Count 3.99 M/mm3 (4.6-6.20); Red Cell Distribution Width 13.8 % (11.5-14.5); White Blood Count 7.4 K/mm3 (4.5-10.0)
[2020-04-03 05:54] LABS: Alanine Aminotransferase 95 U/L (4-50); Albumin Level 3.2 g/dL (3.5-5.1); Alkaline Phosphatase 68 U/L (38-126); Anion Gap 9 mmol/L (8-16); Aspartate Amino Transferase 112 U/L (17-59); Bilirubin,Total 0.4 mg/dL (0.2-1.3); Blood Urea Nitrogen 27 mg/dL (9-20); CRP 2.1 mg/dL (<1.0); Calcium 8.2 mg/dL (8.4-10.2); Carbon Dioxide 21 mmol/L (22-30); Chloride 110 mmol/L (98-107); Estimated CRCL calculation 89 ml/min; Estimated Glomerular Filt Rate > 60; Glucose 176 mg/dL (75-110); Sodium 140 mmol/L (137-145)
[2020-04-03] MEDS: DEXAMETHASONE 2 MG TABLET 6 MG PO (08:33)
[2020-04-03] MEDS: amLODIPine BESYLATE 5 MG TABLET 10 MG PO (08:33)
[2020-04-03] MEDS: metFORMIN HCL XR 500 MG TAB.SR.24H 1000 MG PO (08:33)
[2020-04-03] MEDS: glipiZIDE XL 5 MG TABCR PO (08:34)
[2020-04-03] MEDS: ZINC SULFATE 220 MG CAPSULE PO (08:34)
[2020-04-03] MEDS: VITAMIN B COMPLEX CAPSULE 1 CAP PO (08:34)
[2020-04-03] MEDS: ASCORBIC ACID 500 MG TABLET PO (08:34)
[2020-04-03] MEDS: CHOLECALCIFEROL 1,000 UNITS TABLET 1000 UNITS PO (08:34)
[2020-04-03] MEDS: ENOXAPARIN 40 MG/0.4 ML SYRINGE SUB-Q ×2 (08:35→21:13)
[2020-04-03] MEDS: FLUTICASONE PROPIONATE 0.05% NA SPR 16 GM BTL (*BKC) 2 SPRAY NASAL (08:35)
[2020-04-03] MEDS: PRAVASTATIN SODIUM 10 MG TABLET PO (08:36)
[2020-04-03] MEDS: BENZONATATE 100 MG CAPSULE 200 MG PO (08:37)
[2020-04-03] MEDS: ALBUTEROL SULFATE (*SP) AEROSOL 1 PUFF 6 PUFF INHALATION ×3 (08:39→21:14)
[2020-04-03 08:46] LABS: Glucose Point of Care 149 (65-105)
--- NOTE | 2020-04-03 11:24 | PC.NURSE ---
This patient, Canelo Cotton, was transferred to [ [facility]] on 04/03/20 at 1120. Personal belongings sent with patient. Report given to [Luz ]. Appropriate documentation sent with patient.
[2020-04-03 12:01] LABS: Glucose Point of Care 240 (65-105)
[2020-04-03] MEDS: REMDESIVIR 100 MG/NS 250 ML 100 MG/250 ML BAG 250 MG IVPB (12:10)
[2020-04-03] MEDS: INSULIN ASPART (*BKC) 100 UNITS/ML SUB-Q ×2 (12:10→17:41)
--- NOTE | 2020-04-03 12:45 | PM.IMPN ---
Progress Note: A&P Assessment and Plan (1) Suspected COVID-19 virus infection: Code(s): Z20.822 - Contact with and (suspected) exposure to COVID-19 Status: Acute Assessment and Plan: Pneumonia likely secondary to COVID-19 given patient's significant imaging findings. The patient is was started on dexamethasone in the ER. Will continue dexamethasone assuming patient's COVID testing comes back positive. 04/03/20 12:45 Patient is 69-year-old male with a past medical history of diabetes hypertension morbidly obese presented emergency department with a complaint cough shortness of breath over 6 week patient thought he was having upper respiratory infection was seen by his primary care physician was diagnosed with bronchitis yesterday and started the patient on Augmentin and inhaler however his symptoms were not improving patient presented emergency department further evaluation today patient is positive COVID 19, currently patient is requiring 4 L of oxygen and does not have any fever, patient was already started on dexamethasone 2 from ER will start the patient on Remdesivir 02/15, convalescent plasma, vitamin D and C also zinc, patient is anticoagulated with lovenox 40mg BID, patient patient has elevated tropes seen by Cardiology does not suspect acute coronary syndrome and patient does not have a significant complaint of chest pain, an EKG did not show any acute injury will continue Lovenox, and does not recommend any further evaluation at the present time. Will continue to monitor the patient will have a PT OT evaluate the patient and further recommendation to follow 04/02 today patient was positive COVID 19 04/01 , currently patient is requiring 4 L of oxygen and does not have any fever, patient was was not started on dexamethasone from ER will start today dexamethasone 02/20, started the patient on 04/01 Remdesivir 03/18, received convalescent plasma, vitamin D and C also zinc, patient is anticoagulated with lovenox 40mg BID, patient remains clinically stable, requested prone ventilation, will have a PT OT evaluate the patient. 04/03 today patient was positive COVID 19 04/01 , currently patient is requiring 3-4 L of oxygen and does not have any fever, patient was was not started on dexamethasone from ER upon arrival and was started on 04/02 dexamethasone 03/23, started the patient on 04/01 Remdesivir 04/15, received convalescent plasma, vitamin D and C also zinc, patient is anticoagulated with lovenox 40mg BID, patient remains clinically stable, requested prone ventilation, will have a PT OT evaluate the patient. will discuss discharging planning on Wednesday 04/05 as patient will complete 5 days course of Remdesivir. (2) Elevated troponin: Code(s): R77.8 - Other specified abnormalities of plasma proteins Status: Acute Assessment and Plan: Initially thought the patient's troponin elevation was due to hypoxia. The patient had been hypoxic with oxygen levels down to 86% as outpatient yesterday. However patient's troponin elevation with quite significant. Patient does have multiple risk factors for coronary artery disease including hypertension diabetes and dyslipidemia. He has also suspected to have COVID-19 which puts him at increased risk for cardiac event. The patient's chest pain resolved after placing on oxygen therapy. Will check an echocardiogram and consult Cardiology. (3) Acute respiratory failure with hypoxia: Code(s): J96.01 - Acute respiratory failure with hypoxia Status: Acute Assessment and Plan: Likely secondary to COVID-19 pneumonia. Patient has been placed on empiric antibiotic therapy with Rocephin and azithromycin rule out possible bacterial component given duration of his symptoms equaling 6 weeks. Will continue steroid therapy if COVID testing comes back positive. The patient is on droplet/contact and airborne isolation. Will add albuterol inhalers. Will check inflammatory markers wi
[2020-04-03 17:12] LABS: Glucose Point of Care 206 (65-105)
[2020-04-03 22:16] LABS: Glucose Point of Care 249 (65-105)
[2020-04-04] VITALS (10 sets, daily range): BP systolic 131–138; BP diastolic 48–79; PULSE 78–114; RESP 16–20; TEMP 36.4–36.9; O2SAT 86–95
[2020-04-04 06:15] LABS: Basophils Percent Auto 0.2 % (0.2-1.2); Hematocrit 34.5 % (42.0-52.0); Hemoglobin 11.3 g/dL (14.0-18.0); Immature Granulocyte Absolute 0.57 K/mm3 (0.00-0.031); Lymphocytes Absolute Auto 1.19 K/mm3 (0.9-3.2); Lymphocytes Percent Auto 12.5 % (18.3-44.2); Mean Corpuscular HGB Conc 32.8 g/dl (32-36); Mean Corpuscular Hemoglobin 27.4 pg (26-34); Mean Corpuscular Volume 83.7 fl (80-100); Mean Platelet Volume 9.1 fl (7.4-10.4); Monocytes Percent Auto 10.2 % (2.6-8.5); Neutrophils Absolute Auto 6.8 K/mm3 (1.3-6.7); Neutrophils Percent Auto 71.1 % (45.5-73.1); Nucleated Red Blood Cells Perc 0.2 % (0.0-0.2); Platelet Count Result 513 k/mm3 (150-375); Red Blood Count 4.12 M/mm3 (4.6-6.20); Red Cell Distribution Width 13.9 % (11.5-14.5); White Blood Count 9.6 K/mm3 (4.5-10.0)
[2020-04-04 07:52] LABS: Alanine Aminotransferase 103 U/L (4-50); Alkaline Phosphatase 63 U/L (38-126); Anion Gap 7 mmol/L (8-16); Aspartate Amino Transferase 90 U/L (17-59); Bilirubin,Total 0.5 mg/dL (0.2-1.3); Blood Urea Nitrogen 27 mg/dL (9-20); CRP 1.2 mg/dL (<1.0); Calcium 8.2 mg/dL (8.4-10.2); Carbon Dioxide 23 mmol/L (22-30); Chloride 109 mmol/L (98-107); Estimated CRCL calculation 89 ml/min; Estimated Glomerular Filt Rate > 60; Glucose 159 mg/dL (75-110); Potassium 4.1 mmol/L (3.4-5.0); Sodium 139 mmol/L (137-145)
[2020-04-04 08:14] LABS: Glucose Point of Care 133 (65-105)
[2020-04-04] MEDS: ALBUTEROL SULFATE (*SP) AEROSOL 1 PUFF 6 PUFF INHALATION ×2 (10:38→16:16)
[2020-04-04] MEDS: DEXAMETHASONE 2 MG TABLET 6 MG PO (10:59)
[2020-04-04] MEDS: amLODIPine BESYLATE 5 MG TABLET 10 MG PO (10:59)
[2020-04-04] MEDS: ENOXAPARIN 40 MG/0.4 ML SYRINGE SUB-Q (10:59)
[2020-04-04] MEDS: BENZONATATE 100 MG CAPSULE 200 MG PO (11:00)
[2020-04-04] MEDS: REMDESIVIR 100 MG/NS 250 ML 100 MG/250 ML BAG 250 MG IVPB (11:00)
[2020-04-04] MEDS: VITAMIN B COMPLEX CAPSULE 1 CAP PO (11:00)
[2020-04-04] MEDS: ASCORBIC ACID 500 MG TABLET PO (11:01)
[2020-04-04] MEDS: CHOLECALCIFEROL 1,000 UNITS TABLET 1000 UNITS PO (11:01)
[2020-04-04] MEDS: glipiZIDE XL 5 MG TABCR PO (11:01)
[2020-04-04] MEDS: ZINC SULFATE 220 MG CAPSULE PO (11:02)
[2020-04-04] MEDS: metFORMIN HCL XR 500 MG TAB.SR.24H 1000 MG PO (11:02)
[2020-04-04] MEDS: PRAVASTATIN SODIUM 10 MG TABLET PO (11:02)
[2020-04-04] MEDS: FLUTICASONE PROPIONATE 0.05% NA SPR 16 GM BTL (*BKC) 2 SPRAY NASAL (11:02)
[2020-04-04 12:26] LABS: Glucose Point of Care 147 (65-105)
--- NOTE | 2020-04-04 14:16 | HOMEO2EVAL ---
Home Oxygen Evaluation RC: Home Oxygen (O2) Evaluation Start: 04/04/20 13:19 Freq: ONCE Status: Active Protocol: RPE Activity Type Activity Date Activity User E-Sign Co-Sign Detail Recorded Client Recorded Date Recorded By Document 04/04/20 13:37 [email or web address] [email or web address] 04/04/20 14:16 KRM Document 04/04/20 13:39 [email or web address] [email or web address] 04/04/20 14:16 KRM Document 04/04/20 13:40 [email or web address] [email or web address] 04/04/20 14:16 KRM Document 04/04/20 13:42 [email or web address] 04/04/20 14:16 KRM Document 04/04/20 13:44 [email or web address] [email or web address] 04/04/20 14:16 KRM 04/04/20 04/04/20 04/04/20 13:37 13:39 13:40 Home O2 Evaluation Test Phase Resting Exercise Exercise Oxygen Delivery Room Air Room Air Nasal Cannula Oxygen Flow Rate (L/min) 1 Pulse Oximetry (90-100 %) 92 86 L 87 L Pulse Rate (60-100 beats/min) 97 112 H 114 H Activity Tolerance Good Good Ambulation Distance (feet) Home Oxygen Evaluation Comments Treatment Charges O2 Evaluation - Inpatient 04/04/20 04/04/20 13:42 13:44 Home O2 Evaluation Test Phase Exercise Exercise Oxygen Delivery Nasal Cannula Nasal Cannula Oxygen Flow Rate (L/min) 2 3 Pulse Oximetry (90-100 %) 87 L 89 L Pulse Rate (60-100 beats/min) 110 H 110 H Activity Tolerance Good Good Ambulation Distance (feet) 50 Home Oxygen Evaluation Comments PT. REQUIRES 3LPM OXYGEN WITH ACTIVITY. Treatment Charges
--- NOTE | 2020-04-04 14:34 | PM.DS ---
DS: Admitting Diagnosis Admitting Diagnosis Admitting Diagnosis: Chief Complaint: Shortness of breath, chest pain DS: Discharge Diagnosis Discharge Diagnosis (1) Suspected COVID-19 virus infection: Code(s): Z20.822 - Contact with and (suspected) exposure to COVID-19 Status: Acute Assessment and Plan: Pneumonia likely secondary to COVID-19 given patient's significant imaging findings. The patient is was started on dexamethasone in the ER. Will continue dexamethasone assuming patient's COVID testing comes back positive. 04/03/20 12:45 Patient is 69-year-old male with a past medical history of diabetes hypertension morbidly obese presented emergency department with a complaint cough shortness of breath over 6 week patient thought he was having upper respiratory infection was seen by his primary care physician was diagnosed with bronchitis yesterday and started the patient on Augmentin and inhaler however his symptoms were not improving patient presented emergency department further evaluation today patient is positive COVID 19, currently patient is requiring 4 L of oxygen and does not have any fever, patient was already started on dexamethasone 03/23 from ER will start the patient on Remdesivir 02/15, convalescent plasma, vitamin D and C also zinc, patient is anticoagulated with lovenox 40mg BID, patient patient has elevated tropes seen by Cardiology does not suspect acute coronary syndrome and patient does not have a significant complaint of chest pain, an EKG did not show any acute injury will continue Lovenox, and does not recommend any further evaluation at the present time. Will continue to monitor the patient will have a PT OT evaluate the patient and further recommendation to follow 04/02 today patient was positive COVID 19 04/01 , currently patient is requiring 4 L of oxygen and does not have any fever, patient was was not started on dexamethasone from ER will start today dexamethasone 02/20, started the patient on 04/01 Remdesivir 03/18, received convalescent plasma, vitamin D and C also zinc, patient is anticoagulated with lovenox 40mg BID, patient remains clinically stable, requested prone ventilation, will have a PT OT evaluate the patient. 04/03 today patient was positive COVID 19 04/01 , currently patient is requiring 3-4 L of oxygen and does not have any fever, patient was was not started on dexamethasone from ER upon arrival and was started on 04/02 dexamethasone 03/23, started the patient on 04/01 Remdesivir 04/15, received convalescent plasma, vitamin D and C also zinc, patient is anticoagulated with lovenox 40mg BID, patient remains clinically stable, requested prone ventilation, will have a PT OT evaluate the patient. will discuss discharging planning on Wednesday 04/05 as patient will complete 5 days course of Remdesivir. (2) Elevated troponin: Code(s): R77.8 - Other specified abnormalities of plasma proteins Status: Acute Assessment and Plan: Initially thought the patient's troponin elevation was due to hypoxia. The patient had been hypoxic with oxygen levels down to 86% as outpatient yesterday. However patient's troponin elevation with quite significant. Patient does have multiple risk factors for coronary artery disease including hypertension diabetes and dyslipidemia. He has also suspected to have COVID-19 which puts him at increased risk for cardiac event. The patient's chest pain resolved after placing on oxygen therapy. Will check an echocardiogram and consult Cardiology. (3) Acute respiratory failure with hypoxia: Code(s): J96.01 - Acute respiratory failure with hypoxia Status: Acute Assessment and Plan: Likely secondary to COVID-19 pneumonia. Patient has been placed on empiric antibiotic therapy with Rocephin and azithromycin rule out possible bacterial component given duration of his symptoms equaling 6 weeks. Will continue steroid therapy if COVID testing comes back positive.
--- NOTE | 2020-04-04 14:43 | PCRCNOTE ---
HOME O2 EVALUATION COMPLETED. PT. REQUIRES O2 AT 3LPM WITH ACTIVITY. PT. SELECTED [facility] DME OF CHOICE. INFO FAXED TO [facility] AT THE BEDSIDE. RN AND DR. KENNEDY.
== END 2020-04-04 17:00 | disposition home or self-care (01) | DRG 177 ==
LOC: ANHED 21:02 → ANHIMU 04-01 11:10 → ANH3MEDSUR 04-04 14:34 → ANHIMU 04-06 14:36
PROVIDERS: Admitting Provider Internal Medicine; Emergency Provider Emergency Medicine; PCP Physician Assistant; Visit Provider Family Medicine
DX: U07.1 COVID-19 (principal); J12.82 Pneumonia due to coronavirus disease 2019; J96.01 Acute respiratory failure with hypoxia; I40.0 Infective myocarditis; B97.89 Other viral agents as the cause of diseases classified elsewhere; E11.9 Type 2 diabetes mellitus without complications; I10 Essential (primary) hypertension; E78.5 Hyperlipidemia, unspecified; E66.01 Morbid (severe) obesity due to excess calories; Z66 Do not resuscitate; Z68.35 Body mass index [BMI] 35.0-35.9, adult; Z90.49 Acquired absence of other specified parts of digestive tract; Z98.42 Cataract extraction status, left eye; Z98.41 Cataract extraction status, right eye
CPT/HCPCS: 36415; 36430; 71045; 71275; 80048; 80053; 82728; 82948; 83605; 83615; 83880; 84484; 85025; 85380; 85610; 85730; 86140; 86900; 86901; 87040; 93005; 94618; 94640; 96374; 97161; 97165; 99291; A9270; C8929; C9803; J0456; J0696; J1100; J1650; J1815; J7040; J7050; J8540; P9059; Q9957; Q9967; U0003; U0005

== ENCOUNTER → 2020-05-14 05:42 | Outpatient (CLI) | payer MEDICARE, SELFPAY ==
[2020-05-14 19:34] LABS: SARS-CoV-2 RNA PCR Negative
== END ==
PROVIDERS: PCP Physician Assistant; Visit Provider Specialist
DX: Z01.812 Encounter for preprocedural laboratory examination (principal); Z20.822 Contact with and (suspected) exposure to COVID-19
CPT/HCPCS: C9803; U0003; U0005

== ENCOUNTER 2020-05-18 01:48 | Day surgery (SDC) | payer MEDICARE, SELFPAY ==
[2020-05-17 15:22] VITALS: BMI 33.7
[2020-05-18] VITALS (33 sets, daily range): BP systolic 123–146; BP diastolic 67–91; PULSE 83–106; RESP 10–20; TEMP 36.4–36.9; O2SAT 94–100; BMI 35.5
[2020-05-18 09:22] LABS: Basophils Absolute Auto 0.1 K/mm3 (0.0-0.1); Basophils Percent Auto 1.2 % (0.2-1.2); Eosinophils Absolute Auto 0.7 K/mm3 (0-0.3); Eosinophils Percent Auto 7.9 % (0-4.4); Hematocrit 40.6 % (42.0-52.0); Hemoglobin 13.2 g/dL (14.0-18.0); Immature Granulocyte Absolute 0.06 K/mm3 (0.00-0.031); Immature Granulocyte Percent A 0.7 % (0-0.5); Lymphocytes Absolute Auto 1.93 K/mm3 (0.9-3.2); Lymphocytes Percent Auto 22.8 % (18.3-44.2); Mean Corpuscular HGB Conc 32.5 g/dl (32-36); Mean Corpuscular Hemoglobin 28.1 pg (26-34); Mean Corpuscular Volume 86.4 fl (80-100); Mean Platelet Volume 9.1 fl (7.4-10.4); Monocytes Absolute Auto 0.9 K/mm3 (0.1-0.6); Monocytes Percent Auto 11.1 % (2.6-8.5); Neutrophils Absolute Auto 4.8 K/mm3 (1.3-6.7); Neutrophils Percent Auto 56.3 % (45.5-73.1); Platelet Count Result 219 k/mm3 (150-375); Red Cell Distribution Width 14.7 % (11.5-14.5); White Blood Count 8.5 K/mm3 (4.5-10.0)
--- NOTE | 2020-05-18 09:29 | SUR.PREOP ---
Patient arrives via WC to [facility] with emotional support person, Alma, at bedside. Patient on 3 L NC. VS obtained. PIV established and labs obtained. Patient verbalizes understanding of plan of care. Will continue to monitor.
[2020-05-18] MEDS: SODIUM CHLORIDE 0.9% IV 500 ML 100 ML IV CONT (09:30)
[2020-05-18 09:32] LABS: Prothrombin Time 13.5 Seconds (11.1-14.7)
[2020-05-18 09:33] LABS: Anion Gap 10 mmol/L (8-16); Blood Urea Nitrogen 16 mg/dL (9-20); Calcium 9.3 mg/dL (8.4-10.2); Carbon Dioxide 23 mmol/L (22-30); Chloride 109 mmol/L (98-107); Estimated CRCL calculation 89 ml/min; Estimated Glomerular Filt Rate > 60; Glucose 129 mg/dL (75-110); Potassium 4.2 mmol/L (3.4-5.0); Sodium 142 mmol/L (137-145)
--- NOTE | 2020-05-18 10:23 | WPDMODSED ---
Moderate Sedation Note-Pt Data Patient Data Diagnosis: Left ventricular systolic dysfunction following recent sanon virus infection Present Complaint: No complaints Procedure to be performed/Plan: Left heart catheterization Allergies Allergy/AdvReac Type Severity Reaction Status Date / Time No Known Allergies Allergy Verified 05/18/20 09:15 Home Medications Medication Instructions Recorded Confirmed Type pravastatin 10 mg tablet 10 mg PO DAILY #90 tablet 05/07/19 05/18/20 Rx glipizide 5 mg PO DAILY 08/07/19 05/18/20 History metformin 500 mg tablet,extended 1,000 mg PO DAILY #180 tablet 10/06/19 05/18/20 Rx release 24 hr amlodipine 10 mg tablet 10 mg PO DAILY #90 tablet 12/15/19 05/18/20 Rx fluticasone propionate 50 See Rx Instructions .ROUTE 03/30/20 05/18/20 Rx mcg/actuation nasal .COMPLEX #48 g spray,suspension loratadine 5 mg-pseudoephedrine ER 1 tablet PO Q12H PRN #20 tablet 03/30/20 05/18/20 Rx 120 mg tablet,extended release,12hr ascorbic acid (vitamin C) [Vitamin 500 mg PO DAILY #30 tablet 04/04/20 05/18/20 Rx C] zinc sulfate 220 mg PO QAM #30 cap 04/04/20 05/18/20 Rx benzonatate 200 mg capsule See Rx Instructions .ROUTE 04/26/20 05/18/20 Rx .COMPLEX #20 cap albuterol sulfate [ProAir HFA] 2 puff INHALATION QID PRN 05/18/20 05/18/20 History aspirin 81 mg PO DAILY 05/18/20 05/18/20 History cholecalciferol (vitamin D3) 125 mcg PO DAILY 05/18/20 05/18/20 History [Vitamin D3] cyanocobalamin (vitamin B-12) 1,000 mcg PO DAILY 05/18/20 05/18/20 History [Vitamin B-12] Current Medications: Active Medications Sodium Chloride (Normal Saline Iv) 500 mls @ 100 mls/hr IV CONT .Q5H [place] Sedation/Anesthesia: No previous sedation/anesthesia problems (including family history). [facility] Past Medical History Medical History (Updated 04/02/20 @ 17:42 by Elle Renee MD) Calculus of distal left ureter With history of lithotripsy March 2010 Diabetes History of trigeminal neuralgia Hypertension Obesity Pneumonia due to COVID-19 virus Surgical History Surgical History (Updated 03/31/20 @ 23:28 by Shireen Wright DO) History of appendectomy History of cholecystectomy (~02/26/09) Status post bilateral cataract extraction Family History Family History Father , At 51 years old Diabetes mellitus Cerebrovascular accident Mother Over 80 years old Social History Social History (Updated 04/01/20 @ 02:12 by Shireen Wright DO) Social History: The patient lives in [place] with his girlfriend of 8 years. 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 He has 1 adult child. He is a lifelong nonsmoker. He rarely drinks alcohol and only in moderation. He states a 6 pack lasts him about a year. He denies illicit substance use. He is independent in activities of daily living. He has a total of 5 siblings. His 1 brother of a gunshot wound in the 1950s. He has a half sister who of complications of smoking and alcohol use in her 80s. His other siblings are still living and a relatively healthy. Primary care physician: Dr. Sherley Luna Surrogate decision maker: Griselda Russell (sister) Code status: DNR per patient request Smoking status: Never smoker Second hand tobacco smoke exposure: No Alcohol intake: never Substance use: never Substance use type: does not use Living arrangements: with family Additional living arrangements comments: Girlfriend. Gender identity (if verbalized by the patient): Male Spiritual care concerns: No Agree to blood products: Yes Mod Sed Physical Exam Physical Exam Pre Procedural Exam: Normal: Appearance, Neck, Throat, Airway, Lungs, Heart Size, Heart Rate, Heart Rhythm, Neuro Exam and Extremities Hours since solid foods: 12 Hours since liquid intake: 12 Internal Medicine - PN: Obj Da Vital Signs Vital Signs: Vital Signs
--- NOTE | 2020-05-18 11:20 | ECG_ITS ---
Measurements Intervals [place] Rate: 94 P: 48 VT: 202 QRS: 6 QRSD: 95 T: 66 QT: 363 QTc: 455 Interpretive Statements SINUS RHYTHM CANNOT RULE OUT SEPTAL INFARCT, AGE INDETERMINATE CONSIDER INFERIOR INFARCT, AGE INDETERMINATE T WAVE ABNORMALITY IN ANTERIOR LEADS- CONSIDER ISCHEMIA BASELINE ARTIFACT- V5 ABNORMAL ECG Electronically Signed On 05-18-2020 11:51:13 CDT by Tashi Guerrero D.O.
--- NOTE | 2020-05-18 11:25 | WPDCARDPROC ---
Cardiac Cath Procedure Note Date of procedure:: 05/18/20 Performing physician:: Peter Keita MD Indication:: left ventricular systolic dysfunction and abnormal nuclear stress test following recent sanon virus infection Brief clinical history:: this is a 69-year-old man without previous history of coronary disease. He was in the hospital recently with sanon virus infection. Because of shortness of breath troponin levels were done which magdaleno moderately. He had no chest pain. Following recover from his COVID He had a nuclear stress test done which demonstrated moderately depressed left ventricular systolic perfusion abnormalities in the anterior wall. For this reason angiogram was recommended and scheduled for today. Procedure Procedure performed:: Left ventriculography coronary angiography PCI(LAVERNE) to the mid LAD Sedation/Medication given:: fentanyl 50 mg Versed 2 mg case start time 10:40 a.m. case end time 11:15 a.m. sedation provided by Tressa Desir RN, trained observer Access site:: right femoral artery Estimated blood loss:: 15-20 cc Procedure note:: patient was brought to the cardiac catheterization lab in the postabsorptive state. The right femoral triangle was prepared and draped in the usual fashion. Anesthesia was provided with 1% lidocaine infiltrated locally. Using the modified Seldinger technique a 5 Latvian sheath was placed into the femoral artery. Left heart catheterization was then performed. I utilized a 5 Latvian angled pigtail catheter to perform a left ventriculogram in the SAUNDERS projection as well as to measure left-sided hemodynamics. After this the pigtail catheter was withdrawn. A standard 5 Latvian FL4 catheter was used to engage and inject the left coronary artery in multiple projections. After this the right coronary was injected using a standard 5 Latvian JR4 catheter. Cineangiograms were then reviewed and PCI of the mid LAD was recommended and carried out as detailed below. Prior to PCI the patient had the 5 Latvian sheath changed out over a guidewire for a 6 Latvian device. He received aspirin and 600 of mg of clopidogrel orally. He then also was anticoagulated with bolus and infusion of Angiomax. 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 This was treated successfully with intravenous bolus of Zofran. Findings:: Hemodynamics: Central aortic pressure is 114/62 left ventricle 114/0 end-diastolic pressure of 7 there is no gradient on pullback across the aortic valve. Left ventricle: The LV is slightly enlarged. The mid to apical anterior wall is the markedly hypodynamic the apex is frankly akinetic. The global ejection fraction appears to be 40% by visual estimation the left main coronary artery is nicely patent the left anterior descending is a medium caliber artery extending down to around the apex there is a focal high-grade atherosclerotic stenosis of 95-99% a short distance prior to the Second diagonal branch in the midportion of the artery. the circumflex is a moderate to large caliber vessel giving rise to the marginal branches and a posterior branch. The circumflex is free of disease angiographically the right coronary artery is 100% occluded in the 2nd portion. Angiographically this is a chronic total occlusion and there is well-developed collateral flow from the distal circumflex to the occluded distal RCA. Intervention: The left main coronary artery was engaged using the standard 6 Latvian CLS 3.5 guiding catheter. I used a 0.014 executive pilot 150 coronary guidewire to wire the LAD which was easily traversed across the stenosis into the terminal portion of the LAD. The lesion was pre-dilated using a 2.5 x 20 mm emerge balloon this was then stented using a 3.0 x 22 mm Orsiro drug-eluting stent with a very good anatomical result. Angiographically the vessel with widely patent with no residual stenosis disr
--- NOTE | 2020-05-18 11:30 | SUR.PHASEII ---
BEGIN PHASE II RECOVERY S/P C W/ PCI W/ DR. BRASHER. RETURNS TO [facility] 5. 6FR SHEATH INTACT R. GROIN. ANGIOMAX GTT CONTINUES AT 45.1 ML/HR. DENIES CP OR SOB. R. GROIN SITE SOFT, NONTENDER; NO BLEEDING OR HEMATOMA NOTED. IVF'S RUNNING ORDERED. REVIEWED BEDREST ACTIVITY RESTRICTIONS W/ PT. WILL CONTINUE TO MONITOR.
[2020-05-18] MEDS: CLOPIDOGREL BISULFATE 300 MG TABLET 600 MG PO (11:45)
[2020-05-18] MEDS: ASPIRIN 81 MG CHEWABLE TABLET 324 MG (11:45)
--- NOTE | 2020-05-18 12:50 | SUR.PHASEII ---
ANGIOMAX GTT COMPLETE AT THIS TIME. NOW MUST WAIT 2 HOURS AFTER GTT COMPLETE BEFORE PULLING SHEATH.
[2020-05-18] MEDS: METOPROLOL SUCCINATE EXT REL 50 MG TABCR PO (13:25)
[2020-05-18] MEDS: SODIUM CHLORIDE 0.9% IV 1,000 ML 125 ML IV CONT (13:25)
--- NOTE | 2020-05-18 15:33 | SUR.PHASEII ---
MANUAL SHEATH PULL BY JAZLYN Amaya RN AT 1503. FIRM STEADY MANUAL PRESSURE HELD TO R. GROIN PUNCTURE SITE FOR 30 MINUTES UNTIL 1533. SITE SOFT, NONTENDER. NO BLEEDING OR HEMATOMA NOTED. SITE DRESSED W/ STAT SEAL AND TEGADERM. BEDREST NOW X 6 HOURS MORE. REVIEWED BEDREST ACTIVITY RESTRICTIONS W/ PT. VOICED UNDERSTANDING. WILL CONTINUE TO MONITOR.
--- NOTE | 2020-05-18 16:33 | SUR.PHASEII ---
END PHASE II RECOVERY. PT TO REMAIN IN [facility] 5 EXTENDED RECOVERY POST OUTPATIENT PROCEDURE STATUS. SEE PCS FOR FURTHER DOCUMENTATION. BEDREST CONTINUES UNTIL 2132. WILL CONTINUE TO MONITOR.
--- NOTE | 2020-05-18 16:34 | ADMGEN ---
This patient, Marlon Cotton, was admitted to/[facility] EXTENDED RECOVERY AFTER OUTPATIENT PROCEDURE. PT. HAD LHC W/ PCI W/ DR. MAGUIRE TODAY. Patient/family oriented to hospital policies and general routines including ID bracelet, bed and alarms, visiting hours, pain management, procedures, bathroom and other care routines, personal items, smoking policy, room service/diet, and visiting hours. Information on how to activate the Rapid Response Team has been discussed. Patient/Family are encouraged to report perceived risks to care and to ask questions if they do not understand what they are told or what they should do.
[2020-05-18 21:20] LABS: Glucose Point of Care 126 (65-105)
[2020-05-19] VITALS (9 sets, daily range): BP systolic 119–133; BP diastolic 62–79; PULSE 84–97; RESP 16–18; TEMP 36.8–37.2; O2SAT 93–95
--- NOTE | 2020-05-19 05:11 | ECG_ITS ---
Measurements Intervals [place] Rate: 93 P: 47 ID: [id number] QRS: 4 QRSD: 96 T: 96 QT: 371 QTc: 461 Interpretive Statements SINUS RHYTHM POSSIBLE LEFT ATRIAL ENLARGEMENT CANNOT RULE OUT SEPTAL INFARCT, AGE INDETERMINATE INFERIOR INFARCT, AGE INDETERMINATE T WAVE ABNORMALITY IN ANTERIOR LEADS- CONSIDER ISCHEMIA ABNORMAL ECG Electronically Signed On 05-19-2020 10:04:42 CDT by Tashi Guerrero D.O.
[2020-05-19] MEDS: LOSARTAN POTASSIUM 25 MG TABLET PO (07:42)
[2020-05-19] MEDS: ROSUVASTATIN 10 MG TABLET PO (07:42)
[2020-05-19] MEDS: ASPIRIN 81 MG CHEWABLE TABLET PO (07:42)
[2020-05-19] MEDS: CLOPIDOGREL BISULFATE 75 MG TABLET PO (07:42)
[2020-05-19] MEDS: METOPROLOL SUCCINATE EXT REL 50 MG TABCR PO (07:44)
[2020-05-19 07:55] LABS: Glucose Point of Care 111 (65-105)
--- NOTE | 2020-05-19 08:58 | PM.PNCARD ---
Progress Note: A&P Assessment and Plan (1) CAD (coronary artery disease): Code(s): I25.10 - Atherosclerotic heart disease of [place] coronary artery without angina pectoris Status: Acute Assessment and Plan: Status post 3.0 x 22 mm Orsiro LAVERNE mid LAD at site of 95-99% stenosis. He has 100% STEREOPTICIAN RCA with collateral filling from the circumflex Dual antiplatelet therapy with aspirin 81 mg daily and Brilinta 90 mg twice daily without interruption. Continue statin therapy, Toprol XL 50 mg daily. Losartan 25 mg daily. Stable for discharge home today in stable and improved condition. Follow-up with Dr. Keita as an outpatient within 4 weeks. Post cardiac catheterization precautions reviewed. (2) Cardiomyopathy: Code(s): I42.9 - Cardiomyopathy, unspecified Status: Acute Assessment and Plan: Moderate LV dysfunction EF 40% anterior hypokinesis and akinetic apex. Compensated. Continue medical therapy. (3) Type 2 diabetes mellitus without complication, without long-term current use of insulin: Code(s): E11.9 - Type 2 diabetes mellitus without complications Status: Acute Assessment and Plan: Continue medical therapy. Resume glipizide and metformin. (4) Hyperlipidemia: Qualifiers: Hyperlipidemia type: unspecified Qualified Code(s): E78.5 - Hyperlipidemia, unspecified Code(s): E78.5 - Hyperlipidemia, unspecified Status: Acute Assessment and Plan: Pravastatin discontinued. Rosuvastatin 10 mg daily. Goal LDL less than 70. Subjective Date/time seen: Date of service: 05/19/20 08:58 Follow-up status post PCI elective left heart catheterization He is feeling well. No leg pain, chest pain, shortness of breath. No new issues overnight. Ambulating without difficulty. No issues on telemetry. Tolerating medications. No concerns. Review of Systems Review of Systems: All systems reviewed & are unremarkable except as noted in HPI and below Constitutional: Constitutional: Reports as per HPI and Reports no additional constitutional complaints Eyes: Eyes: Reports as per HPI and Reports no additional eye complaints ENT: Reports system reviewed and no additional complaints, except as documented and Reports as per HPI Cardiovascular: Cardiovascular: Reports as per HPI and Reports no additional cardiovascular complaints Respiratory: Respiratory: Reports as per HPI and Reports no additional respiratory complaints Gastrointestinal: Gastrointestinal: Reports as per HPI and Reports no additional gastrointestinal complaints Genitourinary: Genitourinary: Reports no additional male genitourinary complaints and Reports as per HPI Musculoskeletal: Musculoskeletal: Reports no additional musculoskeletal complaints and Reports as per HPI Integumentary/Breasts: Skin/Breast: Reports system reviewed and no additional complaints, except as docu and Reports as per HPI Neurologic: Reports system reviewed and no additional complaints, except as documented and Reports as per HPI Psychiatric: Psychiatric: Reports no additional psychiatric complaints and Reports as per HPI Endocrine: Endocrine: Reports no additional endocrine complaints and Reports as per HPI Hematologic/Lymphatic: Hematologic/Lymphatic: Reports no additional hematologic/lymphatic complaints and Reports as per HPI Allergic/Immunologic: Allergic/Immunologic: Reports no additional allergic/immunologic complaints and Reports as per HPI Exam Narrative: Exam Narrative: General: Well developed, alert and oriented x3. No apparent distress, comfortable, pleasant, and cooperative. Head: atraumatic, normocephalic Eyes: EOM intact, sclerae anicteric, conjunctivae unremarkable Ears/Nose: external inspection of ears and nose were grossly normal Mouth/Throat: oral mucosa pink and moist Neck: supple, normal range of motion, no jugular venous distention or carotid bruits, thyroid nonpalpable, trachea mid
--- NOTE | 2020-05-19 09:05 | PC.NURSE ---
DR. PATTON TO BEDSIDE TO SEE PT. QUESTIONS ANSWERED. AM EKG COMPLETED AND SHOWN TO DR PATTON.
--- NOTE | 2020-05-19 09:30 | PM.DS ---
DS: Admitting Diagnosis Admitting Diagnosis Admitting Diagnosis: Abnormal stress test, cardiomyopathy, elective coronary angiography DS: Discharge Diagnosis Discharge Diagnosis (1) CAD (coronary artery disease): Code(s): I25.10 - Atherosclerotic heart disease of [place] coronary artery without angina pectoris Status: Acute Assessment and Plan: Status post 3.0 x 22 mm Orsiro LAVERNE mid LAD at site of 95-99% stenosis. He has 100% INSURANCE COUNSEL RCA with collateral filling from the circumflex Dual antiplatelet therapy with aspirin 81 mg daily and Brilinta 90 mg twice daily without interruption. Continue statin therapy, Toprol XL 50 mg daily. Losartan 25 mg daily. Stable for discharge home today in stable and improved condition. Follow-up with Dr. Keita as an outpatient within 4 weeks. Post cardiac catheterization precautions reviewed. (2) Cardiomyopathy: Code(s): I42.9 - Cardiomyopathy, unspecified Status: Acute Assessment and Plan: Moderate LV dysfunction EF 40% anterior hypokinesis and akinetic apex. Compensated. Continue medical therapy. (3) Hypertension: Code(s): I10 - Essential (primary) hypertension Status: Acute (4) Type 2 diabetes mellitus without complication, without long-term current use of insulin: Code(s): E11.9 - Type 2 diabetes mellitus without complications Status: Acute Assessment and Plan: Continue medical therapy. Resume glipizide and metformin. (5) Hyperlipidemia: Qualifiers: Hyperlipidemia type: unspecified Qualified Code(s): E78.5 - Hyperlipidemia, unspecified Code(s): E78.5 - Hyperlipidemia, unspecified Status: Acute Assessment and Plan: Pravastatin discontinued. Rosuvastatin 10 mg daily. Goal LDL less than 70. DS: Summary Hospital Course Reason for hospitalization: Elective left heart catheterization Hospital Course: Patient admitted as an outpatient post cardiac catheterization with successful drug-eluting stent implantation 3.0 x 22 mm Orsiro to mid LAD at site of 95-99% stenosis. Patient had INSURANCE COUNSEL of RCA with good collateral filling from the circumflex. EF 40% anterior hypokinesis and apical akinesis. Patient did well overnight with observation. No groin site complications. BP control. No chest pain or shortness of breath. Patient was discharged home in stable improved condition follow up as an outpatient as scheduled. Status at Discharge Cognitive/behavioral status at discharge: Competent Functional status at discharge: independent ambulation Overall status at discharge: patient is progressing back to baseline Time Spent with Patient Time attestation: Total time spent providing and/or coordinating discharge services: 35 minutes Time spent: Greater than 30 minutes Exam Narrative: Exam Narrative: General: Well developed, alert and oriented x3. No apparent distress, comfortable, pleasant, and cooperative. Head: atraumatic, normocephalic Eyes: EOM intact, sclerae anicteric, conjunctivae unremarkable Ears/Nose: external inspection of ears and nose were grossly normal Mouth/Throat: oral mucosa pink and moist Neck: supple, normal range of motion, no jugular venous distention or carotid bruits, thyroid nonpalpable, trachea midline. Cardiac: Regular rate and rhythm, normal S1-S2, no murmurs, clicks, gallops, or rubs. Lungs: Clear to auscultation bilaterally, no rales, wheezes, or rhonchi. Abdomen: Soft, nontender, nondistended, positive bowel sounds throughout. No appreciable hepatosplenomegaly, no rebound guarding or rigidity noted. Abdominal aorta nonpalpable, no appreciable bruits. Extremities: Trace lower extremity edema, clubbing, and or cyanosis. Extremities warm and well perfused. Right groin arterial access site is soft, no hematoma, bruising or bleeding. No bruit. Right femoral pulse is 2+ Skin: Warm and dry without ecchymoses, rashes, and/or petechiae. Musculoskel
--- NOTE | 2020-05-19 11:15 | PC.NURSE ---
DISCHARGE INSTRUCTIONS REVIEWED W/ PT. QUESTIONS ANSWERED. VOICED UNDERSTANDING OF ALL. DISCHARGED HOME, OUT VIA WC TO SISTER'S WAITING CAR WITH ALL PERSONAL BELONGINGS, HOME MEDICATIONS, HOME OXYGEN TANK, DISCHARGE PACKET. HOME ON ROOM AIR. VOICES NO C/O. NO DISTRESS NOTED. STEADY GAIT. DENIES PAIN OR SOB.
== END 2020-05-19 11:15 | disposition home or self-care (01) ==
LOC: ANHCATHLAB 08:51 → ANHCPC 16:47
PROVIDERS: PCP Physician Assistant; Visit Provider Specialist
PROC: 4A023N7 Measurement of Cardiac Sampling and Pressure, Left Heart, Percutaneous Approach (ICD-10-PCS; CPT 93452; principal; 2020-05-18 10:00)
DX: I25.10 Atherosclerotic heart disease of native coronary artery without angina pectoris (principal); I42.9 Cardiomyopathy, unspecified; R11.0 Nausea; R94.39 Abnormal result of other cardiovascular function study; R06.02 Shortness of breath; E11.9 Type 2 diabetes mellitus without complications; E78.5 Hyperlipidemia, unspecified; I10 Essential (primary) hypertension; E66.9 Obesity, unspecified; Z68.35 Body mass index [BMI] 35.0-35.9, adult; Z86.16 Personal history of COVID-19; Z79.84 Long term (current) use of oral hypoglycemic drugs; Z79.51 Long term (current) use of inhaled steroids; Z79.82 Long term (current) use of aspirin
CPT/HCPCS: 36415; 80048; 85025; 85610; 93005; 93458; A9270; C1725; C1769; C1874; C1887; C1894; C9600; C9803; J0461; J0583; J1644; J2250; J2405; J3010; J7030; J7040; U0003; U0005

== ENCOUNTER 2020-09-19 07:15 | Outpatient (RCR) | payer MEDICARE, SELFPAY ==
[2020-06-28 16:07] VITALS: PULSE 84
[2020-07-04 11:14] LABS: Glucose Point of Care 177 mg/dl (65-105)
--- NOTE | 2020-08-10 08:06 | PCCPR ---
Absent today due to back pain
== END 2020-09-19 16:50 | disposition home or self-care (01) ==
LOC: ANHCPREHAB 07:15
PROVIDERS: PCP Physician Assistant; Visit Provider Specialist
DX: Z95.5 Presence of coronary angioplasty implant and graft (principal)
CPT/HCPCS: 82948; 93798

== ENCOUNTER 2020-09-20 11:43 | Outpatient (CLI) | payer MEDICARE, SELFPAY ==
--- NOTE | ~2020-09-20 | XR_ITS ---
XR lumbar spine min 4V DATE: 09/20/2020 11:50 INDICATION: Low back pain after injury at work TECHNIQUE: AP, lateral, coned lateral lumbosacral views, bilateral oblique views COMPARISON: None FINDINGS: Normal alignment of the lumbar spine. There is degenerative disc disease throughout the lumbar spine, moderately prominent L3-4, moderately severe at L4-5 and more severe at L5-S1. No spondylolysis or spondylolisthesis. The lumbar pedicles are intact. No fracture or bone destruction. The sacroiliac joints are intact. IMPRESSION: Multilevel degenerative disc disease Reviewed, dictated and finalized at location A.
[2020-09-20 12:29] LABS: Basophils Absolute Auto 0.1 K/mm3 (0.0-0.1); Basophils Percent Auto 0.8 % (0.2-1.2); Eosinophils Absolute Auto 0.4 K/mm3 (0-0.3); Eosinophils Percent Auto 4.9 % (0-4.4); Hematocrit 41.8 % (42.0-52.0); Hemoglobin 13.5 g/dL (14.0-18.0); Immature Granulocyte Absolute 0.06 K/mm3 (0.00-0.031); Immature Granulocyte Percent A 0.7 % (0-0.5); Lymphocytes Absolute Auto 2.03 K/mm3 (0.9-3.2); Lymphocytes Percent Auto 24.1 % (18.3-44.2); Mean Corpuscular HGB Conc 32.3 g/dl (32-36); Mean Corpuscular Hemoglobin 27.9 pg (26-34); Mean Corpuscular Volume 86.4 fl (80-100); Mean Platelet Volume 9.3 fl (7.4-10.4); Monocytes Percent Auto 12.3 % (2.6-8.5); Neutrophils Absolute Auto 4.8 K/mm3 (1.3-6.7); Neutrophils Percent Auto 57.2 % (45.5-73.1); Platelet Count Result 221 k/mm3 (150-375); Red Blood Count 4.84 M/mm3 (4.6-6.20); Red Cell Distribution Width 14.8 % (11.5-14.5); White Blood Count 8.4 K/mm3 (4.5-10.0)
[2020-09-20 12:57] LABS: Alanine Aminotransferase 28 U/L (4-50); Albumin Level 4.4 g/dL (3.5-5.1); Alkaline Phosphatase 57 U/L (38-126); Anion Gap 9 mmol/L (8-16); Aspartate Amino Transferase 35 U/L (17-59); Bilirubin,Total 1.2 mg/dL (0.2-1.3); Blood Urea Nitrogen 19 mg/dL (9-20); Calcium 9.7 mg/dL (8.4-10.2); Carbon Dioxide 24 mmol/L (22-30); Chloride 109 mmol/L (98-107); Cholesterol 141 mg/dL (0-200); Estimated Glomerular Filt Rate > 60; Glucose 101 mg/dL (65-110); HDL Direct 44 mg/dL; Potassium 4.3 mmol/L (3.4-5.0); Sodium 142 mmol/L (137-145); Triglycerides 90 mg/dL (<150); Uric Acid 6.8 mg/dL (3.5-8.5)
[2020-09-20 13:10] LABS: LDL Cholesterol Direct 63 mg/dL
[2020-09-20 13:11] LABS: Prostate Specific Antigen 1.4 ng/mL (< OR = 4.0)
[2020-09-20 13:56] LABS: Creatinine Urine 115.2 mg/dL; MALB Creatinine Ratio 15.9 mg/g (0-30); Microalbumin Urine Random 18.3 mg/L (0-16.7)
[2020-09-23 17:58] LABS: PSA, Free 0.51 ng/mL; PSA, Total 1.4 ng/mL (<=4.0)
== END 2020-09-20 11:44 | disposition home or self-care (01) ==
PROVIDERS: PCP Family Medicine; Visit Provider Family Medicine
DX: E78.2 Mixed hyperlipidemia (principal); E11.9 Type 2 diabetes mellitus without complications; I10 Essential (primary) hypertension; N40.1 Benign prostatic hyperplasia with lower urinary tract symptoms; E79.0 Hyperuricemia without signs of inflammatory arthritis and tophaceous disease; M54.5 Low back pain
CPT/HCPCS: 36415; 72110; 80053; 80061; 82043; 83036; 84153; 84154; 84550; 85025

== ENCOUNTER 2020-09-30 12:29 | Outpatient (CLI) | payer MEDICARE, SELFPAY ==
--- NOTE | ~2020-09-30 | CT_ITS ---
EXAMINATION: CT abdomen pelvis w con DATE: 09/30/2020 13:06 INDICATION: Low back pain. History of kidney stones. TECHNIQUE: Computed tomography (CT) of the abdomen and pelvis was performed with 100 cc Omnipaque 350 intravenous contrast. Automated exposure control and iterative reconstruction technique were employe d. Exam dose: 1448.75 mGy-cm total exam DLP. COMPARISON: None. FINDINGS: No basilar consolidation is evident. Normal heart size. No pericardial or pleural effusion. No hepatic space-occupying mass lesion. Status post cholecystectomy. No bile duct dilatation. No pancreatic mass lesion, calcification or ductal patient. Normal splenic size. Normal morphology of the adrenal glands. No renal mass lesion or urinary tract calculus or hydroureteronephrosis. Normal caliber of the abdominal aorta. No intraperitoneal or retroperitoneal or pelvic mass lesion or adenopathy or ascites. Moderate prostate enlargement. There is mild to moderate diffuse thickening of the urinary bladder wa ll. There are numerous diverticula of the sigmoid and descending colon. There is mild pericolic fat stran ding adjacent to the sigmoid colon; mild diverticulitis is not excluded. No bowel obstruction or intraperitoneal free air. There is a moderately prominent fat-containing umbilical hernia with some increased density which may indicate some inflammation. Diffuse idiopathic skeletal hyperostosis of the thoracic spine. Moderate degenerative disc disease of the upper mid lumbar spine. Severe degenerative disc disease at L4-5 and L5-S1. No suspicious osteolytic or osteoblastic lesions are noted. IMPRESSION: Diverticulosis of the sigmoid and descending colon; mild pericolic fat stranding in the sigmoid area may indicate very mild mild diverticulitis, without abscess or free air. Moderate size fat-containing umbilical hernia with increased density, which may represent some inflam mation Status post cholecystectomy Reviewed, dictated and finalized at Location [facility]. Reviewed, dictated and finalized at location A. IMPRESSION: Diverticulosis of the sigmoid and descending colon; mild pericolic fat stranding in the sigmoid area may indicate very mild mild diverticulitis, without abscess or free air. Moderate size fat-containing umbilical hernia with increased density, which may represent some inflammation Status post cholecystectomy
--- NOTE | ~2020-09-30 | CT_ITS ---
EXAMINATION:CT diagnostic chest wo con DATE: 09/30/2020 13:09 INDICATION: Shortness of breath. Personal history of COVID-19 pneumonia. TECHNIQUE: Computed tomography (CT) of the chest was performed without intravenous contrast. Automate d exposure control and iterative reconstruction technique were employed. The dose-length product (DLP ) was 726.51 mGy-cm. COMPARISON: Chest CT 03/31/2020 FINDINGS: The lungs demonstrate mosaic attenuation. There are mild peripheral groundglass opacities i n all lobes with a lower lung predominance. No bronchiectasis or honeycombing. A calcified right lung nodule and calcified right hilar lymph nodes are consistent with old granulomatous disease. No pleur al effusion. The heart size is normal. There are coronary artery calcifications. No pericardial effus ion. There are changes of cholecystectomy. There is severe cervical spondylosis. There are bridging e ndplate osteophytes at multiple levels in the spine, consistent with diffuse idiopathic skeletal hype rostosis (DISH). IMPRESSION: 1. Mild diffuse lung disease with marked interval improvement, consistent with [id number] lung dis ease. Reviewed, dictated and finalized at location A. IMPRESSION: 1. Mild diffuse lung disease with marked interval improvement, consistent with [id number] lung disease.
== END 2020-09-30 12:30 | disposition home or self-care (01) ==
LOC: ANHIMG 12:34
PROVIDERS: PCP Family Medicine; Visit Provider Family Medicine
DX: R06.02 Shortness of breath (principal); Z86.16 Personal history of COVID-19; R91.8 Other nonspecific abnormal finding of lung field; K57.30 Diverticulosis of large intestine without perforation or abscess without bleeding; Z90.49 Acquired absence of other specified parts of digestive tract; K42.9 Umbilical hernia without obstruction or gangrene
CPT/HCPCS: 71250; 74177; Q9967

== ENCOUNTER 2020-12-21 14:30 | Outpatient (RCR) | payer MEDICARE, SELFPAY ==
[2020-11-17 11:02] VITALS: BMI 44.3
[2020-11-17 11:03] VITALS: BMI 44.3
== END 2021-01-16 10:45 | disposition home or self-care (01) ==
LOC: ANHDMC 14:30
PROVIDERS: PCP Family Medicine; Visit Provider Family Medicine
DX: E11.9 Type 2 diabetes mellitus without complications (principal); Z71.3 Dietary counseling and surveillance; Z71.89 Other specified counseling
CPT/HCPCS: 97804; 99199; G0108; G0109

== ENCOUNTER 2021-03-07 13:05 | Outpatient (RCR) | payer MEDICARE, SELFPAY | END 2021-03-07 13:51 | disposition home or self-care (01) | LOC: ANHDMC 13:05 | PROVIDERS: PCP Family Medicine; Visit Provider Family Medicine | DX: E11.9 Type 2 diabetes mellitus without complications (principal); Z71.89 Other specified counseling | CPT/HCPCS: G0108 ==

== ENCOUNTER 2022-07-04 08:14 | Outpatient (CLI) | payer MEDICARE, SELFPAY ==
[2022-07-04 13:24] LABS: Alanine Aminotransferase 26 U/L (6-50); Albumin Level 4.1 g/dL (3.5-5.1); Alkaline Phosphatase 54 U/L (38-126); Anion Gap 7 mmol/L (8-16); Aspartate Amino Transferase 41 U/L (17-59); Bilirubin,Total 1.3 mg/dL (0.2-1.3); Blood Urea Nitrogen 24 mg/dL (9-20); Calcium 8.9 mg/dL (8.4-10.2); Carbon Dioxide 28 mmol/L (22-30); Chloride 103 mmol/L (98-107); Cholesterol 146 mg/dL (0-200); Estimated Glomerular Filt Rate > 60; Glucose 116 mg/dL (65-110); HDL Direct 41 mg/dL; Potassium 4.4 mmol/L (3.4-5.0); Sodium 138 mmol/L (137-145); Triglycerides 82 mg/dL (<150)
[2022-07-04 13:35] LABS: LDL Cholesterol Direct 80 mg/dL
[2022-07-04 14:25] LABS: Hemoglobin A1C 6.6 % (<5.7)
== END 2022-07-04 08:15 | disposition home or self-care (01) ==
LOC: ANHGOSHLAB 08:16
PROVIDERS: PCP Family Medicine; Visit Provider Physician Assistant
DX: E11.9 Type 2 diabetes mellitus without complications (principal); E78.5 Hyperlipidemia, unspecified; I10 Essential (primary) hypertension; Z12.5 Encounter for screening for malignant neoplasm of prostate
CPT/HCPCS: 36415; 80053; 80061; 83036

== ENCOUNTER 2022-07-30 09:46 | Emergency (ER) | payer MEDICARE, SELFPAY ==
[2022-07-30 09:59] VITALS: BP 128/81; PULSE 98; RESP 16; TEMP 36.7; O2SAT 100
[2022-07-30 10:03] VITALS: BP 128/81; PULSE 98; RESP 16; TEMP 36.7; O2SAT 100
--- NOTE | 2022-07-30 10:06 | ED.EAR ---
HPI - Ear Problem General Chief complaint: Ear Stated complaint: Ear Infection Time Seen by Provider: 07/30/22 10:00 Source: patient Mode of arrival: ambulatory Limitations: no limitations History of Present Illness HPI Narrative: Marlon is a 72-year-old male patient presenting to the clinic today with complaints of bilateral ear fullness/decreased hearing. He reports this has been going on for approximately 1 month. Reports he has been using [id number] ear drops and this has improved his symptoms. He denies any fever or chills. Related Data Home Medications Medication Instructions Recorded Confirmed aspirin 81 mg chewable tablet 81 mg PO DAILY 05/18/20 01/18/22 cholecalciferol (vitamin D3) 125 125 mcg PO DAILY 05/18/20 01/18/22 mcg (5,000 unit) tablet (Vitamin D3) clopidogrel 75 mg tablet (Plavix) 75 mg PO DAILY 09/14/21 01/18/22 Allergies Allergy/AdvReac Type Severity Reaction Status Date / Time No Known Allergies Allergy Verified 07/30/22 10:00 Review of Systems Review of Systems: Pertinent positives per HPI. Patient denies any fever, chills, rash, headache, visual changes, dizziness, cough, shortness of breath, chest pain, palpitations, nausea, vomiting, diarrhea, constipation, abdominal pain, or any urinary issues. 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 He has 1 adult child. He is a lifelong nonsmoker. He rarely drinks alcohol and only in moderation. He states a 6 pack lasts him about a year. He denies illicit substance use. He is independent in activities of daily living. He has a total of 5 siblings. His 1 brother of a gunshot wound in the 1950s. He has a half sister who of complications of smoking and alcohol use in her 80s. His other siblings are still living and a relatively healthy. Primary care physician: Dr. Daja Covington Surrogate decision maker: Griselda Russell (sister) Code status: DNR per patient request Smoking status: Never smoker Second hand tobacco smoke exposure: No Alcohol intake: never Substance use: never Substance use type: does not use Living arrangements: with family Occupation/Education: occupation Additional occupation/education comments: Pt still works as [employer] as a side job. Gender identity (if verbalized by the patient): Male Sexual Orientation (if Verbalized by the Patient): Straight or Heterosexual Spiritual care concerns: No Agree to blood products: Yes Comments At the time of my signature, I reviewed and agree with the nursing past medical, surgical, social, and family history. There is no relevant family history pertinent to the patient complaint. Exam Narrative: General: Well-developed, well nourished, in no apparent distress Head: Normocephalic, atraumatic Eyes: Pupils equally round and reactive to light bilaterally, EOM intact, sclera and conjun
== END 2022-07-30 10:29 | disposition home or self-care (01) ==
PROVIDERS: Emergency Provider Nurse Practitioner Family; PCP Family Medicine
DX: H65.03 Acute serous otitis media, bilateral (principal); H61.23 Impacted cerumen, bilateral; I25.10 Atherosclerotic heart disease of native coronary artery without angina pectoris; E11.9 Type 2 diabetes mellitus without complications; I10 Essential (primary) hypertension; E66.9 Obesity, unspecified; Z68.35 Body mass index [BMI] 35.0-35.9, adult; Z95.5 Presence of coronary angioplasty implant and graft; Z98.42 Cataract extraction status, left eye; Z98.41 Cataract extraction status, right eye; Z86.16 Personal history of COVID-19
CPT/HCPCS: 69210; 99213; A9270; G0463

== ENCOUNTER 2022-10-29 10:10 | Outpatient (CLI) | payer MEDICARE, SELFPAY ==
--- NOTE | ~2022-10-29 | XR_ITS ---
MODIFIED ESOPHAGRAM HISTORY: Dysphagia. TECHNIQUE: Modified barium esophagram was performed on 10/29/2022. I administered fluoroscopy and perf ormed the exam with speech pathologist. Patient was seated for lateral fluoroscopic imaging for sabina stion of thin liquids, pudding, solids and quantified amounts, followed by thin liquids in uncontroll ed amounts. This was recorded on tape. A single fluoroscopic spot image was also recorded. The DAP fo r this procedure was 1.4 Gycm2. The amount of fluoroscopy time used during this procedure was 1.4 min utes. FINDINGS: Oral stage: Adequate function. Pharyngeal stage: Adequate function. Cervical/esophageal stage: Adequate function. IMPRESSION: Patient tolerated regular consistency oral feedings in the upright position. Please leonela elate with speech pathologist findings and specific feeding recommendations. Reviewed, dictated and finalized at location A. IMPRESSION: Patient tolerated regular consistency oral feedings in the upright position. Please correlate with speech pathologist findings and specific feedi ng recommendations.
--- NOTE | 2022-10-29 12:00 | REHSTMBS ---
Assessment and note entered by Laurie Gillis, ADJUNCT PHLEBOTOMY INSTRUCTOR Modified Barium Swallow Evaluation Diagnosis dysphagia Subjective Information Pt reported having difficulty at times swallowing food of smaller particles. He described that its every so often and it seems like he forgets how to swallow, it goes down the wrong way, and when he coughs it sometimes comes out his nose. He says it might happen more when he is looking up while swallowing. He states he gets an infected left side eustachian tube infection and feels its related. Feeding Type Recommended Oral Food Consistency Regular, Level 7 Liquid Consistency Thin (0) ST Clinical Summary The patient was viewed in a lateral position when presented with 5cc of thin liquid barium via a spoon, pudding consistency barium via a spoon, a cracker coated with barium pudding via spoon ( crumbled & whole pieces), and an uncontrolled thin liquid barium bolus. This was presented via a cup/straw. Oral preparatory and oral phase symptoms: none. Pharyngeal phase symptoms: none. The pt tended to move his head up and down during the evaluation. When his head was tilted up, there was a slight vallecular residual; essentially insignificant as he independently dry swallowed and cleared it; but it was mentioned to the pt that he should be aware of head positioning while eating/drinking. No laryngeal penetration or aspiration occurred. Impressions: Overall, the patient presents with normal/functional swallow ability throughout all stages of the swallow. No further ST is warranted.
== END 2022-10-29 10:11 | disposition home or self-care (01) ==
PROVIDERS: PCP Family Medicine; Visit Provider Otolaryngology
DX: R13.10 Dysphagia, unspecified (principal)
CPT/HCPCS: 92611

== ENCOUNTER 2022-12-18 08:56 | Outpatient (CLI) | payer MEDICARE, SELFPAY ==
--- NOTE | ~2022-12-18 | XR_ITS ---
EXAMINATION: XR lumbar spine min 4V DATE: 12/18/2022 09:22 INDICATION: Dorsalgia unspecified TECHNIQUE: Anteroposterior, lateral, and bilateral oblique views of the lumbar spine, and cone-down l ateral view of the lumbosacral junction were obtained. COMPARISON: 09/20/2020 FINDINGS: There are 2 mm of anterolisthesis of L4 on L5. Alignment is otherwise normal. The vertebral body heights are maintained. There is unchanged moderate loss of intervertebral disc space height at L1-2, L3-4, and L4-5. There is severe loss of intervertebral disc space height at L5-S1. Small degen erative osteophytes project from the anterior endplates of multiple vertebral bodies. There is severe facet joint osteoarthritis bilaterally at L5-S1. Degenerative osteophytes project from the anterior endplates of multiple vertebral bodies. Cholecystectomy clips are noted. IMPRESSION: 1. Moderate lumbar spondylosis without acute findings or significant interval change. Reviewed, dictated and finalized at location L. [place] IMPRESSION: 1. Moderate lumbar spondylosis without acute findings or significant interval c tricia.
== END 2022-12-18 08:57 | disposition home or self-care (01) ==
PROVIDERS: PCP Family Medicine; Visit Provider Family Medicine
DX: M43.06 Spondylolysis, lumbar region (principal); G89.29 Other chronic pain
CPT/HCPCS: 72110

== ENCOUNTER 2022-12-21 09:00 | Outpatient (CLI) | payer MEDICARE, SELFPAY ==
--- NOTE | ~2022-12-21 | CT_ITS ---
EXAMINATION: CT lumbar spine wo con DATE: 12/21/2022 09:53 INDICATION: Dorsalgia, unspecified. TECHNIQUE: Computed tomography (CT) of the lumbar spine was performed without intravenous contrast. A utomated exposure control and iterative reconstruction technique were employed. The dose-length produ ct was 1529.29 mGy-cm. COMPARISON: Lumbar spine radiographs 12/18/22 FINDINGS: There is 3 mm retrolisthesis of L4 on L5. Vertebral body heights are normal. There is sever rafael decreased disc height at L1-L2, moderately decreased disc height at L2-L3, and severely decreased disc height from L3 through L4 through L5-S1. The following disc levels are specifically discussed: L1-L2: The disc is bulging. There is mild bilateral facet joint osteoarthritis. There is mild bilater al neural foraminal stenosis. There is mild central canal stenosis. L2-L3: The disc is bulging. There is mild bilateral facet joint osteoarthritis. There is mild bilater al neural foraminal stenosis. There is mild central canal stenosis. L3-L4: The disc is bulging. There is moderate right and mild left facet joint osteoarthritis. There i s moderate right and mild left neural foraminal stenosis. There is mild central canal stenosis. L4-L5: The disc is bulging. There is severe bilateral facet joint osteoarthritis. There is moderate b ilateral neural foraminal stenosis. There is mild central canal stenosis. L5-S1: The disc is bulging. There is severe bilateral facet joint osteoarthritis. There is moderate b ilateral neural foraminal stenosis. There is mild central canal stenosis. IMPRESSION: 1. Severe lumbar spondylosis. Reviewed, dictated and finalized at location E. EMAN HELPER
== END 2022-12-21 09:01 | disposition home or self-care (01) ==
PROVIDERS: PCP Family Medicine; Visit Provider Family Medicine
DX: M43.06 Spondylolysis, lumbar region (principal); M48.10 Ankylosing hyperostosis [Forestier], site unspecified; G89.29 Other chronic pain
CPT/HCPCS: 72131

== ENCOUNTER 2023-05-08 13:54 | Emergency (ER) | payer MEDICARE, SELFPAY ==
--- NOTE | ~2023-05-08 | CT_ITS ---
EXAMINATION: CT chest abdomen pelvis w con DATE: 05/08/2023 15:19 INDICATION: Chest and abdominal pain TECHNIQUE: Computed tomography (CT) of the chest, abdomen, and pelvis was performed with 100 mL Omnip aque-350 intravenous contrast. Automated exposure control and iterative reconstruction technique were employed. The dose-length product was 1865.35 mGy-cm. COMPARISON: CT studies dated 09/30/2020 FINDINGS: CHEST CT: Calcified right lower lobe nodule with calcified right hilar lymph nodes consistent with old granulom atous disease. Streaky atelectasis at the right middle lobe. No pneumonia, pulmonary edema, pleural e ffusion or pneumothorax. Heart size is normal. Atherosclerotic coronary artery calcifications. Thorac ic aorta is normal in caliber with no dissection. No pathologically enlarged thoracic lymphadenopathy . There are bridging osteophytes at multiple levels consistent with diffuse idiopathic skeletal hyper ostosis (DISH). ABDOMEN/PELVIS CT: Cholecystectomy clips the gallbladder fossa. Liver, spleen, pancreas, bilateral adrenal glands and ki dneys are normal. Bladder is normal. There is moderate colonic diverticulosis with a sigmoid and desc ending colon predominance. There is no adjacent inflammatory change to suggest diverticulitis. There is fluid in the distal small bowel and in the proximal colon consistent with nonspecific diarrhea. Bl adder is normal. Prostatomegaly. No free intraperitoneal gas or fluid. No pathologically enlarged abd ominal or pelvic lymphadenopathy. Again seen is a small fat-containing umbilical hernia with decrease in the associated stranding within the herniated fat Moderate to severe lumbar spondylosis. IMPRESSION: 1. No acute cardiopulmonary disease. 2. Fluid in the large and small bowel consistent with nonspecific diarrhea. No other acute intra-abdo monique/pelvic process. 3. Diverticulosis. 4. Small fat-containing umbilical hernia with decrease in the prior inflammatory stranding of the her niated fat. Reviewed, dictated and finalized at location A. IMPRESSION: 1. No acute cardiopulmonary disease. 2. Fluid in the large and small bowel consistent with nonspecific diarrhea. No other acute intra-abdominal/pelvic process. 3. Diverticulosis. 4. Small fat-containing umbilical hernia with decrease in the prior inflammator y stranding of the herniated fat.
[2023-05-08 13:55] VITALS: BP 151/72; PULSE 93; RESP 17; TEMP 36.6; O2SAT 97
--- NOTE | 2023-05-08 14:12 | ECG_ITS ---
Measurements Intervals [place] Rate: 93 P: 32 MS: 184 QRS: -4 QRSD: 85 T: 6 QT: 328 QTc: 408 Interpretive Statements SINUS RHYTHM LOW QRS VOLTAGE IN PRECORDIAL LEADS INFERIOR INFARCT, AGE INDETERMINATE ANTEROSEPTAL INFARCT, AGE INDETERMINATE BASELINE WANDER- III, V1-V3 ABNORMAL ECG COMPARED TO ECG 05/19/2020 09:28:13 NO SIGNIFICANT CHANGES Electronically Signed On 05-08-2023 14:26:34 CDT by Tashi Guerrero D.O.
[2023-05-08 14:33] LABS: Basophils Percent Auto 0.4 % (0.2-1.2); Eosinophils Absolute Auto 0.1 K/mm3 (0-0.3); Eosinophils Percent Auto 1.2 % (0-4.4); Hematocrit 45.5 % (42.0-52.0); Hemoglobin 14.4 g/dL (14.0-18.0); Immature Granulocyte Absolute 0.01 K/mm3 (0.00-0.031); Immature Granulocyte Percent A 0.2 % (0-0.5); Lymphocytes Absolute Auto 1.53 K/mm3 (0.9-3.2); Lymphocytes Percent Auto 30.9 % (18.3-44.2); Mean Corpuscular HGB Conc 31.6 g/dl (32-36); Mean Corpuscular Hemoglobin 27.5 pg (26-34); Mean Platelet Volume 9.7 fl (7.4-10.4); Monocytes Absolute Auto 0.9 K/mm3 (0.1-0.6); Monocytes Percent Auto 17.8 % (2.6-8.5); Neutrophils Absolute Auto 2.5 K/mm3 (1.3-6.7); Neutrophils Percent Auto 49.5 % (45.5-73.1); Platelet Count Result 126 k/mm3 (150-375); Red Blood Count 5.23 M/mm3 (4.6-6.20); Red Cell Distribution Width 14.6 % (11.5-14.5)
[2023-05-08 14:42] LABS: Alanine Aminotransferase 58 U/L (6-50); Albumin Level 4.3 g/dL (3.5-5.1); Alkaline Phosphatase 56 U/L (38-126); Anion Gap 12 mmol/L (4-12); Aspartate Amino Transferase 68 U/L (17-59); Blood Urea Nitrogen 46 mg/dL (9-20); Carbon Dioxide 21 mmol/L (22-30); Chloride 104 mmol/L (98-107); Estimated CRCL calculation 50 ml/min; Estimated Glomerular Filt Rate 40; Glucose 96 mg/dL (65-110); Lipase 64 U/L (23-300); Sodium 137 mmol/L (137-145)
--- NOTE | 2023-05-08 14:42 | ED.ABDPAIN ---
HPI - Abdominal Pain General Chief Complaint: Abdominal Pain Stated Complaint: hiatal hernia Time Seen by Provider: 05/08/23 14:13 History of Present Illness HPI narrative: 72-year-old male presenting to the emergency department for evaluation of epigastric pain that is been ongoing for the day. Patient does have a prior history of hiatal hernia. Patient states he did have a recent diagnosis of bronchitis and has been coughing a lot over the last 2 weeks. Patient states he was coughing so hard he injured his abdomen. Patient denies any current chest pain or shortness of breath patient has no coughing in the emergency department. Patient denies any lower abdominal pain Related Data Home Medications Medication Instructions Recorded Confirmed aspirin 81 mg chewable tablet 81 mg PO DAILY 05/18/20 01/07/23 cholecalciferol (vitamin D3) 125 125 mcg PO DAILY 05/18/20 01/07/23 mcg (5,000 unit) tablet (Vitamin D3) clopidogrel 75 mg tablet (Plavix) 75 mg PO DAILY 09/14/21 01/07/23 Allergies Allergy/AdvReac Type Severity Reaction Status Date / Time No Known Allergies Allergy Verified 05/08/23 13:56 Review of Systems Review of Systems: All systems reviewed & are unremarkable except as noted in HPI and below PMFSH Past Medical History Medical History Acute respiratory distress syndrome CAD (coronary artery disease) Calculus of distal left ureter With history of lithotripsy March 2010 Cardiomyopathy COVID-19 Diabetes History of trigeminal neuralgia Hypertension 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 He has 1 adult child. He is a lifelong nonsmoker. He rarely drinks alcohol and only in moderation. He states a 6 pack lasts him about a year. He denies illicit substance use. He is independent in activities of daily living. He has a total of 5 siblings. His 1 brother of a gunshot wound in the 1950s. He has a half sister who of complications of smoking and alcohol use in her 80s. His other siblings are still living and a relatively healthy. Primary care physician: Dr. Daja Covington Surrogate decision maker: Griselda Russell (sister) Code status: DNR per patient request Smoking status: Never smoker Second hand tobacco smoke exposure: No Alcohol intake: never Substance use: never Substance use type: does not use Lack of Transportation: No Lack of Food: Never True Current Housing: I Have Housing Concerned About Future Housing: No Difficulty Paying Gas/Electric Bills: No Difficulty Paying for Meds: No Currently Unemployed: YES Education: Don't Know Difficulty w/ Childcare or Family Care: No Living arrangements: with family Occupation/Education: retired Gender identity (if verbalized by the patient): Male Sexual Orientation (if Verbalized by the Patient): Straight or Heterosexual Spiritual care concerns: No Agree to blood products: Yes Exam Narrative: APPEARANCE: Well appearing, no pain, no distress, well-nourished. HEAD: normocephalic, atraumatic. EYES: PERRLA/EOMI, conjunctivae clear. NOSE: Normal no drainage EARS:TMS clear with good light reflex. THROAT: Pharynx clear, no exudate. NECK: Suppl
[2023-05-08] MEDS: SODIUM CHLORIDE 0.9% IV 1,000 ML 999 ML IV CONT (14:57)
[2023-05-08 16:15] VITALS: BP 142/87; PULSE 84; RESP 21; O2SAT 96
== END 2023-05-08 16:17 | disposition home or self-care (01) ==
PROVIDERS: Emergency Provider Emergency Medicine; PCP Family Medicine
DX: R10.13 Epigastric pain (principal); I25.10 Atherosclerotic heart disease of native coronary artery without angina pectoris; I42.9 Cardiomyopathy, unspecified; E11.9 Type 2 diabetes mellitus without complications; I10 Essential (primary) hypertension; E66.9 Obesity, unspecified; Z68.33 Body mass index [BMI] 33.0-33.9, adult; Z66 Do not resuscitate; Z95.5 Presence of coronary angioplasty implant and graft; Z87.01 Personal history of pneumonia (recurrent); Z86.16 Personal history of COVID-19; Z87.442 Personal history of urinary calculi; Z98.42 Cataract extraction status, left eye; Z98.41 Cataract extraction status, right eye; Z90.49 Acquired absence of other specified parts of digestive tract; K42.9 Umbilical hernia without obstruction or gangrene; K57.90 Diverticulosis of intestine, part unspecified, without perforation or abscess without bleeding; Z79.82 Long term (current) use of aspirin; Z79.84 Long term (current) use of oral hypoglycemic drugs
CPT/HCPCS: 36415; 71260; 74177; 80053; 83690; 85025; 85055; 93005; 96360; 99284; J7030; Q9967

== ENCOUNTER 2025-01-28 09:34 | Outpatient (CLI) | payer MEDICARE, SELFPAY ==
--- NOTE | ~2025-01-28 | XR_ITS ---
EXAMINATION: XR shoulder RT min 2V DATE: 01/28/2025 11:30 INDICATION: Right shoulder pain TECHNIQUE: Right shoulder x-rays were obtained. COMPARISON: None. FINDINGS: Advanced degenerative changes of the glenohumeral joint with severe joint space narrowing, and moderate to large spur formation along the inferior margin of the humeral head. Moderate degenerative changes at the AC joint. No gross acute or aggressive bony or soft tissue process seen. IMPRESSION: 1. Severe degenerative changes at the glenohumeral joint. Reviewed, dictated and finalized at location A. [facility]
--- OUTSIDE RECORDS SUMMARY | 2025-01-28 10:25 | XMS_ITS | Clinical Summary ---
Author Organization [facility] [address] Address [address] [place] [address] Care Team Providers Care Cleaner Greaser Name Role Phone Daja Covington MD Primary Care Provider Allergies No known active allergies Medications zinc sulfate 220 mg tablet Take 1 tablet (220 mg total) by mouth daily Active ascorbic acid (VITAMIN C) 500 mg tablet,chewable Acti ve cholecalciferol (VITAMIN D-3) 25 mcg (1,000 unit) tablet Take 1 tablet (1,000 Units total) by mouth daily Active glipiZIDE XL (GLUCOTROL XL) 5 mg 24 hr tablet Take 1 tablet (5 mg total) by mouth daily with breakfast 1 Active metFORMIN XR (GLUCOPHAGE XR) 500 mg 24 hr tablet Take 2 tablets (1,000 mg total) by mouth daily 1 Active vitamin b complex tablet Take 1 tablet by mouth daily Active nitroglycerin (NITROSTAT) 0.4 mg SL tablet ONE TABLET UNDER TONGUE NEEDED FOR CHEST PAIN EVERY 5 MINUTES NEEDED FOR CHEST PAIN 1 Active rosuvastatin (CRESTOR) 10 mg tablet TAKE 1 TABLET BY MOUTH DAILY 90 tablet 1 Active losartan (COZAAR) 25 mg tablet TAKE 1 TABLET BY MOUTH DAILY 90 tablet 3 3 Active aspirin 81 mg enteric coated tablet Take 1 tablet (81 mg total) by mouth daily Active metoprolol XL (TOPROL-XL) 50 mg extended release tablet TAKE 1 TABLET(50 MG) BY MOUTH DAILY 90 tablet 3 Active Active Problems Problem Noted Date Diagnosed Date Morbid (severe) obesity due to excess calories 0 05/29/2022 History of coronary artery stent placement 11/28 Left ventricular systolic dysfunction 05/03/2020 Encounters Date Type Department Care Team Description 12/17/2024 2:15 PM PULL OUT OPERATOR Office Visit [facility] Cardiology [address] [place] [address] Peter Keita MD Left ventricular systolic dysfunction (Primary Dx); History of coronary artery stent placement from Last 3 Months Surgical History Surgery Date Site/Laterality Comments APPENDECTOMY CATARACT EXTRACTION 02/11/2015 - 02/11/2016 CHOLECYSTECTOMY 02/11/2014 - 02/10/2015 Medical History Medical History Date Comments Hypertension Hyperlipidemia Diabetes mellitus Family History Medical History Relation Name Comments Diabetes Father og ochoa Stroke Father og ochoa Cancer Mother kayla Relation Name Status Comments Father og ochoa (Age 51) Mother kayla (Age 94) Social History Tobacco Use Types Packs/Day Years Used Date Smoking Tobacco: Never Cigarettes Smokeless Tobacco: Never Tobacco Cessation:Counseling Given: Not Answered Sex and Gender Information Value Date Recorded Sex Assigned at Not on file Legal Sex Male 8:22 PM PULL OUT OPERATOR Gender Identity Not on file Sexual Orientation Straight 05/26/2020 7: 14 PM CDT Last Filed Vital Signs Vital Sign Reading Time Taken Comments Blood Pressure 116/80 12/17/2024 1:41 PM PULL OUT OPERATOR Pulse 86 12/17/2024 1:41 PM PULL OUT OPERATOR Temperature - - Respiratory Rate - - Oxygen Saturation 96% 12/17/2024 1:41 PM PULL OUT OPERATOR Inhaled Oxygen Concentration - - Weight 131.9 kg (290 lb 12.8 oz) 12/17/2024 1:41 PM PULL OUT OPERATOR Height 190.5 cm (6' 3) 12/17/2024 1:41 PM PULL OUT OPERATOR Body Mass Index 36.35 12/17/2024 1:41 PM PULL OUT OPERATOR Plan of Treatment Health Maintenance Due Date Last Done Comments Colon Cancer Screening-Colonoscopy 1950 Depression Screening 1950 Fall Risk Assessment 1950 Hepatitis C Screening 1950 Well Visit 65+ 06/29/2015 Pneumococcal vaccine 65+ (2 of 2 - PCV) 12/06/2020 12/07/2019 Influenza Vaccine (#1) 2024 , 03/21/2019, 11/07/2017, Additional history exists DTaP/Tdap/Td Vaccine (4 - Td or Tdap) 10/06/2029 10/07/2019, 07/23/2018, 01/31/2009, Additional history exists Hepatitis B Screening Completed 07/12/2011 , 06/05/1999, 04/04/1999, Additional history exists Zoster Vaccine Completed 07/23/2018, 02/2017, 01/08/2012 Insurance [facility] MEDICARE [facility] Address: [facility] [address] [place] [address] Care Teams Cleaner Greaser Relationship Specialty Start Date End Date Daja Covington MD [address] [facility] [address] [place] [address] PCP - General Family Medicine 11/24/20
== END 2025-01-28 09:35 | disposition home or self-care (01) ==
PROVIDERS: PCP Family Medicine; Visit Provider Physician Assistant
DX: M19.011 Primary osteoarthritis, right shoulder (principal)
CPT/HCPCS: 73030